=== PATIENT | male | born 1955 | race Caucasian/White ===

== ENCOUNTER 2019-01-01 10:13 | Outpatient (CLI) | payer OTHER ==
[2019-01-01] MEDS ORDERED: GADOBUTROL 10 MMOL/10 ML VIAL ONE (10:30)
== END 2019-01-01 23:59 | disposition home or self-care (01) ==
LOC: CFH 10:13
PROVIDERS: ATTEND Psychiatry & Neurology Neurology
DX: H50.9 Unspecified strabismus (principal); R51 Headache; H53.9 Unspecified visual disturbance; J34.89 Other specified disorders of nose and nasal sinuses
CPT/HCPCS: 70553; A9585

== ENCOUNTER 2019-10-05 12:11 | Inpatient (IN) | payer OTHER ==
[~2019-10-05] VITALS: Ht 182.9 cm; Wt 77.0 kg
--- NOTE | 2019-10-05 12:30 | NUR ---
pt is moderate suicide risk per assessment. gas charger aware.
[2019-10-05] MEDS ORDERED: SODIUM CHLORIDE 0.9% 1,000ML IVBOLUS ONE ×2 (13:30→17:30)
[2019-10-05] MEDS ORDERED: MAGNESIUM SULFATE/D5W 100 ML IV ONE (13:30)
[2019-10-05] MEDS ORDERED: DIPHENHYDRAMINE 25 MG CAPSULE PO ONE (13:30)
[2019-10-05] MEDS ORDERED: DEXAMETHASONE 4 MG/ML, 1ML IVPush ONE (13:30)
[2019-10-05] MEDS ORDERED: KETOROLAC 30 MG/1 ML IVPush ONE (13:30)
[2019-10-05] MEDS ORDERED: METOCLOPRAMIDE 5 MG/ML, 2ML IVPush ONE (13:30)
[2019-10-05 13:34] LABS: ANION GAP 12 mmol/L (5-15); CALCIUM 10.2 mg/dL (8.5-10.1); CHLORIDE 98 mmol/L (98-107); CREATININE 2.27 mg/dL (0.7-1.3)
--- NOTE | 2019-10-05 13:40 | NUR ---
CHILD CARE AIDE: INFORMED PT IS LEGAL HOLD NOW, PT MOVED TO SECURE ROOM.
--- NOTE | 2019-10-05 13:55 | NUR ---
BREAK RN: PT MOVED FROM ROOM 13 TO ROOM 2 DUE TO SAFETY CONCERNS. PT ROOM SECURED, GARAGE DOORS DOWN, BELONGINGS PLACED IN SAFE KEEPING. SITTER AT DOOR
[2019-10-05] MEDS ORDERED: DIPHENHYDRAMINE 25 MG CAPSULE ONE (14:05)
[2019-10-05] MEDS ORDERED: DEXAMETHASONE 4 MG/ML, 5ML ONE (14:05)
[2019-10-05] MEDS ORDERED: METOCLOPRAMIDE 5 MG/ML, 2ML ONE (14:05)
[2019-10-05] MEDS ORDERED: KETOROLAC 30 MG/1 ML ONE (14:05)
[2019-10-05 14:20] LABS: MEAN CORPUSCULAR HEMOGLOBIN 32.3 pg (27.5-34.5); MEAN CORPUSCULAR HGB CONC 34.4 g/dL (33.2-36.2); MEAN CORPUSCULAR VOLUME 93.7 fL (81-97); RED BLOOD COUNT 2.53 x10^6/uL (4.38-5.82); RED CELL DISTRIBUTION WIDTH 16.7 % (9.4-14.8)
[2019-10-05 14:24] LABS: MEAN PLATELET VOLUME 7.2 fL (7.4-10.4); PLATELET COUNT 64 x10^3/uL (130-400)
--- NOTE | 2019-10-05 14:25 | NUR ---
back from lunch, report from Eleuterio, RN break RN. patient came from room 18. patient to me is denying suicide ideation. He states he said he wanted to kill himself because of the headache pain. patient reports headache that began 38 days ago. he is a difficult historian because he is restless with pain. he is in bed, on monitor, vss, and rails up/medicated. patient denies suicide and states no prior suicide attempts. patient states pain got bad in last two hours in head and that he can't tolerate it. will monitor.
[2019-10-05 14:29] LABS: BASOPHILS # (AUTO) 0.05 x10^3/uL (0-0.1); BASOPHILS % (AUTO) 1 % (0-1); EOSINOPHILS # (AUTO) 0.04 x10^3/uL (0-0.4); EOSINOPHILS % (AUTO) 1 % (1-7); LYMPHOCYTES % (AUTO) 19 % (22-44); MD SCAN; MONOCYTES # (AUTO) 0.45 x10^3/uL (0.2-0.8); MONOCYTES % (AUTO) 7 % (2-9); NEUTROPHILS # (AUTO) 4.61 x10^3/uL (1.8-6.8); NEUTROPHILS % (AUTO) 73 % (42-75)
--- NOTE | 2019-10-05 15:10 | NUR ---
patient has calmed some. in bed rails up on monitor
--- NOTE | 2019-10-05 16:04 | NUR ---
clean catch urine obtained and sent to lab. patient to be admitted, awaiting orders
[2019-10-05 16:12] LABS: AMPHETAMINE SCREEN, URINE Negative (Negative); BARBITURATE SCREEN, URINE Negative (Negative); BENZODIAZEPINE SCREEN, URINE Negative (Negative); CANNABINOID SCREEN, URINE Negative (Negative); COCAINE SCREEN, URINE Negative (Negative); METHADONE SCREEN, URINE Negative (Negative); OPIATE SCREEN, URINE Positive (Negative)
[2019-10-05 16:13] LABS: SALICYLATE LEVEL < 1.7 mg/dL (2.8-20.0)
[2019-10-05] MEDS ORDERED: LEVO50TA PO (16:37)
[2019-10-05] MEDS ORDERED: TRAM1TAB6 PO (16:37)
--- NOTE | 2019-10-05 16:37 | NUR ---
trying to update med list, patient is unsure of meds. says he takes cepta for depression but unknown med. updated meds that he knows.
[2019-10-05] MEDS ORDERED: DOCUSATE 100 MG CAPSULE PO PRN (17:30)
[2019-10-05] MEDS ORDERED: HYDROmorphone 2 MG/ML, 1ML IVPush PRN (17:30)
[2019-10-05] MEDS: LACTATED RINGERS 1,000 ML IV SCH (18:33)
[2019-10-05 18:43] LABS: ALBUMIN 2.1 g/dL (3.4-5.0); BILIRUBIN, DIRECT 0.1 mg/dL (0.1-0.2)
[2019-10-05 19:00] VITALS: BP 172/89
[2019-10-05 19:08] LABS: BILIRUBIN,INDIRECT 0.3 mg/dL (0.0-2.0); BILIRUBIN,TOTAL 0.4 mg/dL (0.2-1.0); FREE T4 (FREE THYROXINE) 0.86 ng/dL (0.76-1.46); HCT (SEDRATE) 22.9 % (39.2-51.8); PREALBUMIN 34.2 mg/dL (20.0-40.0); TOTAL PROTEIN 12.9 g/dL (6.4-8.2)
[2019-10-05 19:14] LABS: D-DIMER (DIC) 0.22 ug/mlFEU (0.00-0.52); INTERNATIONAL NORMALIZED RATIO 1.23 (0.93-1.1); PROTHROMBIN TIME 13.1 Seconds (9.6-11.5); PROTIME 13.1 Seconds (9.6-11.5)
[2019-10-05] MEDS: VALPROATE SODIUM 500 MG in DEXTROSE 5% 100 ML IV SCH (19:35)
[2019-10-05 20:13] LABS: SEDIMENTATION RATE > 120 mm/hr (0-10)
[2019-10-05] MEDS: ACETAMINOPHEN 325 MG TABLET PO PRN (20:27)
[2019-10-05] MEDS: LABETALOL 5MG/ML, 20ML IVPush PRN (20:28)
[2019-10-05 21:40] VITALS: BP 154/78
[2019-10-05] MEDS: METOCLOPRAMIDE 5 MG/ML, 2ML IVPush PRN (22:37)
[2019-10-05] MEDS: DIPHENHYDRAMINE 50 MG/ML, 1ML IVPush PRN (22:38)
[2019-10-05 23:14] LABS: MICROSCOPIC INDICATED
[2019-10-05 23:23] LABS: CHLORIDE,URINE RANDOM 48 mmol/L; POTASSIUM,URINE RANDOM 78 mmol/L; SODIUM,URINE RANDOM 44 mmol/L
[2019-10-05 23:26] LABS: CULTURE INDICATED? NO
[2019-10-06 01:03] VITALS: BP 162/87
[2019-10-06] MEDS: VALPROATE SODIUM 500 MG in DEXTROSE 5% 100 ML IV SCH ×4 (01:34→20:53)
[2019-10-06] MEDS: ACETAMINOPHEN 325 MG TABLET PO PRN (01:43)
[2019-10-06] MEDS: LACTATED RINGERS 1,000 ML IV SCH ×3 (04:10→20:53)
[2019-10-06] MEDS: LEVOTHYROXINE 50 MCG TABLET PO SCH (05:39)
[2019-10-06] MEDS: DIPHENHYDRAMINE 50 MG/ML, 1ML IVPush PRN (05:52)
[2019-10-06] MEDS: METOCLOPRAMIDE 5 MG/ML, 2ML IVPush PRN (05:52)
[2019-10-06] MEDS ORDERED: CYANOCOBALAMIN 1,000 MCG/ML, 1ML IM ONE (06:30)
[2019-10-06 06:41] LABS: ANION GAP 11 mmol/L (5-15); CALCIUM 9.9 mg/dL (8.5-10.1); CHLORIDE 100 mmol/L (98-107)
[2019-10-06 06:53] LABS: ALANINE AMINOTRANSFERASE 18 U/L (12-78); ALKALINE PHOSPHATASE 28 U/L (45-117); BILIRUBIN,TOTAL 0.3 mg/dL (0.2-1.0); MEAN CORPUSCULAR HEMOGLOBIN 32.9 pg (27.5-34.5); MEAN CORPUSCULAR HGB CONC 34.7 g/dL (33.2-36.2); MEAN CORPUSCULAR VOLUME 94.9 fL (81-97); RED BLOOD COUNT 2.31 x10^6/uL (4.38-5.82); RED CELL DISTRIBUTION WIDTH 17.1 % (9.4-14.8); TOTAL PROTEIN 12.8 g/dL (6.4-8.2)
[2019-10-06 07:07] VITALS: BP 153/81
[2019-10-06] MEDS: CYANOCOBALAMIN 1,000 MCG TABLET PO SCH (08:38)
[2019-10-06] MEDS: PANTOPRAZOLE 40 MG IV IVPush SCH (08:39)
[2019-10-06] MEDS: ACETAMINOPHEN 325 MG TABLET PO SCH (08:39)
[2019-10-06 08:46] LABS: BASOPHILS # (AUTO) 0.03 x10^3/uL (0-0.1); BASOPHILS % (AUTO) 0 % (0-1); EOSINOPHILS # (AUTO) 0.01 x10^3/uL (0-0.4); EOSINOPHILS % (AUTO) 0 % (1-7); LYMPHOCYTES # (AUTO) 1.08 x10^3/uL (1-3.4); LYMPHOCYTES % (AUTO) 15 % (22-44); MD MORPH REVIEW ONLY; MEAN PLATELET VOLUME 7.4 fL (7.4-10.4); MONOCYTES # (AUTO) 0.65 x10^3/uL (0.2-0.8); MONOCYTES % (AUTO) 9 % (2-9); NEUTROPHILS # (AUTO) 5.56 x10^3/uL (1.8-6.8); NEUTROPHILS % (AUTO) 76 % (42-75); PLATELET COUNT 58 x10^3/uL (130-400)
[2019-10-06 08:48] LABS: <PLATELET ESTIMATE> DECREASED; <PLT MORPHOLOGY> NORMAL PLT MORPH; ROULEAUX 2+
[2019-10-06] MEDS: ONDANSETRON 2MG/ML, 2ML IVPush PRN (10:01)
[2019-10-06] MEDS ORDERED: GADOTERATE 7.5 MMOL/15 ML SYR ONE (14:12)
[2019-10-06] MEDS ORDERED: MIDAZOLAM 1 MG/ML, 5ML ONE (14:33)
[2019-10-06] MEDS ORDERED: FLUMAZENIL 0.1 MG/1 ML, 5ML ONE (14:33)
[2019-10-06] MEDS ORDERED: FENTANYL PF 100 MCG/2ML ONE ×2 (14:33)
[2019-10-06] MEDS ORDERED: NALOXONE 1 MG/ML, 2ML ONE (14:33)
[2019-10-06] MEDS ORDERED: LIDOCAINE 1%, 10ML ONE (14:33)
[2019-10-06 17:31] VITALS: BP 144/86
[2019-10-06 19:29] VITALS: BP 119/71
[2019-10-07] VITALS (10 sets, daily range): BP systolic 125–156; BP diastolic 69–91
[2019-10-07] MEDS: VALPROATE SODIUM 500 MG in DEXTROSE 5% 100 ML IV SCH ×4 (03:06→21:29)
[2019-10-07] MEDS: LACTATED RINGERS 1,000 ML IV SCH (03:08)
[2019-10-07] MEDS: LEVOTHYROXINE 50 MCG TABLET PO SCH (05:07)
[2019-10-07 05:51] LABS: ANION GAP 7 mmol/L (5-15); CALCIUM 9.3 mg/dL (8.5-10.1); CHLORIDE 103 mmol/L (98-107)
[2019-10-07 05:52] LABS: CREATININE 1.88 mg/dL (0.7-1.3)
[2019-10-07 06:20] LABS: MEAN CORPUSCULAR HEMOGLOBIN 32.2 pg (27.5-34.5); MEAN CORPUSCULAR HGB CONC 34.3 g/dL (33.2-36.2); RED BLOOD COUNT 1.98 x10^6/uL (4.38-5.82); RED CELL DISTRIBUTION WIDTH 16.8 % (9.4-14.8)
[2019-10-07 06:25] LABS: MEAN PLATELET VOLUME 7.3 fL (7.4-10.4); PLATELET COUNT 54 x10^3/uL (130-400)
[2019-10-07 06:27] LABS: BASOPHILS # (AUTO) 0.04 x10^3/uL (0-0.1); BASOPHILS % (AUTO) 1 % (0-1); EOSINOPHILS # (AUTO) 0.06 x10^3/uL (0-0.4); EOSINOPHILS % (AUTO) 1 % (1-7); LYMPHOCYTES # (AUTO) 1.37 x10^3/uL (1-3.4); LYMPHOCYTES % (AUTO) 21 % (22-44); MD MORPH REVIEW ONLY; MONOCYTES # (AUTO) 0.41 x10^3/uL (0.2-0.8); MONOCYTES % (AUTO) 6 % (2-9); NEUTROPHILS # (AUTO) 4.62 x10^3/uL (1.8-6.8); NEUTROPHILS % (AUTO) 71 % (42-75)
[2019-10-07 06:28] LABS: <PLATELET ESTIMATE> DECREASED; <PLT MORPHOLOGY> NORMAL PLT MORPH; ROULEAUX 2+
[2019-10-07] MEDS: D5%-0.45% NACL 1,000 ML IV SCH ×2 (08:17→21:30)
[2019-10-07] MEDS: ACETAMINOPHEN 325 MG TABLET PO SCH (08:17)
[2019-10-07] MEDS: PANTOPRAZOLE 40 MG IV IVPush SCH (08:17)
[2019-10-07] MEDS: CYANOCOBALAMIN 1,000 MCG TABLET PO SCH (08:19)
[2019-10-07] MEDS: DIPHENHYDRAMINE 50 MG/ML, 1ML IVPush PRN ×2 (10:23→21:39)
[2019-10-07] MEDS: METOCLOPRAMIDE 5 MG/ML, 2ML IVPush PRN (10:23)
[2019-10-07] MEDS ORDERED: LACTATED RINGERS 1,000 ML IV SCH (17:00)
[2019-10-08] MEDS: ONDANSETRON 2MG/ML, 2ML IVPush PRN (01:51)
[2019-10-08 02:15] VITALS: BP 149/89
[2019-10-08] MEDS: VALPROATE SODIUM 500 MG in DEXTROSE 5% 100 ML IV SCH ×4 (03:04→20:49)
[2019-10-08] MEDS: LEVOTHYROXINE 50 MCG TABLET PO SCH (05:43)
[2019-10-08] MEDS: ACETAMINOPHEN 325 MG TABLET PO PRN (05:50)
[2019-10-08 06:48] LABS: MEAN CORPUSCULAR HEMOGLOBIN 32.6 pg (27.5-34.5); MEAN CORPUSCULAR HGB CONC 34.6 g/dL (33.2-36.2); MEAN CORPUSCULAR VOLUME 94.4 fL (81-97); MEAN PLATELET VOLUME 7.5 fL (7.4-10.4); PLATELET COUNT 54 x10^3/uL (130-400); RED CELL DISTRIBUTION WIDTH 15.7 % (9.4-14.8)
[2019-10-08 06:53] LABS: ANION GAP 9 mmol/L (5-15); CALCIUM 9.3 mg/dL (8.5-10.1); CHLORIDE 102 mmol/L (98-107)
[2019-10-08 06:54] LABS: CREATININE 1.49 mg/dL (0.7-1.3)
[2019-10-08 07:25] LABS: MD YES
[2019-10-08 07:34] LABS: BAND#(MANUAL) 0.16 x10^3/uL; BANDS%(MANUAL) 3 % (0-7); LYMPH#(MANUAL) 1.35 x10^3/uL (1-3.4); LYMPHS% (MANUAL) 25 % (22-44); METAMYELOCYTES# (MANUAL) 0.05 x10^3/uL (0-0); METAMYELOCYTES% (MANUAL) 1 % (0-1); MONOS#(MANUAL) 0.22 x10^3/uL (0.3-2.7); MONOS% (MANUAL) 4 % (2-9); ROULEAUX 2+; SEG#(MANUAL) 3.62 x10^3/uL (1.8-6.8); SEGS% (MANUAL) 67 % (42-75)
[2019-10-08 07:35] LABS: <PLATELET ESTIMATE> DECREASED; <PLT MORPHOLOGY> NORMAL PLT MORPH
[2019-10-08 07:49] VITALS: BP 148/82
[2019-10-08] MEDS: CYANOCOBALAMIN 1,000 MCG TABLET PO SCH (08:18)
[2019-10-08] MEDS: PANTOPRAZOLE 40 MG IV IVPush SCH (08:18)
[2019-10-08] MEDS: ACETAMINOPHEN 325 MG TABLET PO SCH (08:20)
[2019-10-08] MEDS: METOCLOPRAMIDE 5 MG/ML, 2ML IVPush PRN ×2 (12:37→18:24)
[2019-10-08] MEDS: DIPHENHYDRAMINE 50 MG/ML, 1ML IVPush PRN ×2 (12:37→18:23)
[2019-10-08 12:45] VITALS: BP 148/84
[2019-10-08] MEDS: D5%-0.45% NACL 1,000 ML IV SCH (14:24)
[2019-10-08 19:34] VITALS: BP 136/82
[2019-10-09 00:50] VITALS: BP 154/87
[2019-10-09] MEDS: VALPROATE SODIUM 500 MG in DEXTROSE 5% 100 ML IV SCH ×2 (03:06→09:49)
[2019-10-09] MEDS: D5%-0.45% NACL 1,000 ML IV SCH ×2 (05:51→20:04)
[2019-10-09] MEDS: LEVOTHYROXINE 50 MCG TABLET PO SCH (05:51)
[2019-10-09 07:05] VITALS: BP 138/88
[2019-10-09] MEDS: PANTOPRAZOLE 40 MG IV IVPush SCH (09:48)
[2019-10-09] MEDS: CYANOCOBALAMIN 1,000 MCG TABLET PO SCH (09:50)
[2019-10-09] MEDS: ACETAMINOPHEN 325 MG TABLET PO SCH (09:50)
[2019-10-09] MEDS: DIPHENHYDRAMINE 50 MG/ML, 1ML IVPush PRN ×2 (10:38→17:40)
[2019-10-09] MEDS: METOCLOPRAMIDE 5 MG/ML, 2ML IVPush PRN ×2 (10:38→17:40)
[2019-10-09 13:59] VITALS: BP 126/84
[2019-10-09] MEDS: DIVALPROEX 500 MG TABLET.DR PO SCH ×2 (15:37→20:04)
[2019-10-09] MEDS ORDERED: DIVALPROEX 500 MG TABLET.DR PO SCH (16:00)
[2019-10-09 19:10] VITALS: BP 162/90
[2019-10-09] MEDS: TRAZODONE 50MG TABLET PO PRN (20:21)
[2019-10-10] MEDS: METOCLOPRAMIDE 5 MG/ML, 2ML IVPush PRN ×3 (01:56→17:30)
[2019-10-10] MEDS: DIPHENHYDRAMINE 50 MG/ML, 1ML IVPush PRN ×3 (01:56→17:30)
[2019-10-10 02:00] VITALS: BP 173/93
[2019-10-10] MEDS: DIVALPROEX 500 MG TABLET.DR PO SCH ×4 (06:26→21:09)
[2019-10-10] MEDS: LEVOTHYROXINE 50 MCG TABLET PO SCH (06:26)
[2019-10-10 07:55] VITALS: BP 156/80
[2019-10-10] MEDS: CYANOCOBALAMIN 1,000 MCG TABLET PO SCH (09:59)
[2019-10-10] MEDS: ACETAMINOPHEN 325 MG TABLET PO SCH (09:59)
[2019-10-10] MEDS: D5%-0.45% NACL 1,000 ML IV SCH (11:09)
[2019-10-10] MEDS: PANTOPRAZOLE 40MG TABLET PO SCH (11:09)
[2019-10-10] MEDS ORDERED: GUAIFENESIN 200 MG TABLET PO PRN (13:00)
[2019-10-10 14:39] VITALS: BP 157/85
[2019-10-10 20:07] VITALS: BP 156/90
[2019-10-11] VITALS (7 sets, daily range): BP systolic 157–187; BP diastolic 83–95
[2019-10-11] MEDS: D5%-0.45% NACL 1,000 ML IV SCH ×2 (00:49→14:42)
[2019-10-11] MEDS: METOCLOPRAMIDE 5 MG/ML, 2ML IVPush PRN ×2 (03:43→10:52)
[2019-10-11] MEDS: DIPHENHYDRAMINE 50 MG/ML, 1ML IVPush PRN ×3 (03:43→22:01)
[2019-10-11 04:56] LABS: ALBUMIN 1.8 g/dL (3.4-5.0); ANION GAP 10 mmol/L (5-15); CALCIUM 9.2 mg/dL (8.5-10.1); CHLORIDE 104 mmol/L (98-107); CREATININE 1.25 mg/dL (0.7-1.3)
[2019-10-11] MEDS: LEVOTHYROXINE 50 MCG TABLET PO SCH (05:46)
[2019-10-11] MEDS: DIVALPROEX 500 MG TABLET.DR PO SCH ×4 (05:46→20:49)
[2019-10-11 05:53] LABS: MEAN CORPUSCULAR HEMOGLOBIN 32.4 pg (27.5-34.5); MEAN CORPUSCULAR HGB CONC 34.3 g/dL (33.2-36.2); MEAN CORPUSCULAR VOLUME 94.7 fL (81-97); RED BLOOD COUNT 2.35 x10^6/uL (4.38-5.82); RED CELL DISTRIBUTION WIDTH 16.8 % (9.4-14.8)
[2019-10-11 05:55] LABS: BASOPHILS # (AUTO) 0.03 x10^3/uL (0-0.1); BASOPHILS % (AUTO) 1 % (0-1); EOSINOPHILS # (AUTO) 0.06 x10^3/uL (0-0.4); EOSINOPHILS % (AUTO) 1 % (1-7); LYMPHOCYTES # (AUTO) 0.98 x10^3/uL (1-3.4); LYMPHOCYTES % (AUTO) 23 % (22-44); MD MORPH REVIEW ONLY; MONOCYTES # (AUTO) 0.34 x10^3/uL (0.2-0.8); MONOCYTES % (AUTO) 8 % (2-9); NEUTROPHILS # (AUTO) 2.88 x10^3/uL (1.8-6.8); NEUTROPHILS % (AUTO) 67 % (42-75); ROULEAUX 2+
[2019-10-11 05:56] LABS: <PLATELET ESTIMATE> DECREASED; <PLT MORPHOLOGY> NORMAL PLT MORPH
[2019-10-11 05:59] LABS: MEAN PLATELET VOLUME 7.9 fL (7.4-10.4); PLATELET COUNT 42 x10^3/uL (130-400)
[2019-10-11] MEDS: CYANOCOBALAMIN 1,000 MCG TABLET PO SCH (08:00)
[2019-10-11] MEDS: PANTOPRAZOLE 40MG TABLET PO SCH (08:01)
[2019-10-11] MEDS: ACETAMINOPHEN 325 MG TABLET PO SCH (08:01)
[2019-10-11] MEDS: LABETALOL 5MG/ML, 20ML IVPush PRN ×2 (08:12→19:30)
[2019-10-11] MEDS ORDERED: POTASSIUM CHLORIDE 20 MEQ in SODIUM CHLORIDE 0.9% 250 ML IV ONE (12:00)
[2019-10-11] MEDS: HYDROmorphone 2 MG/ML, 1ML IVPush PRN ×2 (15:04→19:51)
[2019-10-11] MEDS: HEPARIN 5,000 UNITS/ML, 1ML SQ SCH (17:00)
[2019-10-12] VITALS (7 sets, daily range): BP systolic 159–179; BP diastolic 85–97
[2019-10-12] MEDS: HEPARIN 5,000 UNITS/ML, 1ML SQ SCH ×4 (01:00→19:00)
[2019-10-12] MEDS: HYDROmorphone 2 MG/ML, 1ML IVPush PRN ×5 (01:51→22:10)
[2019-10-12 05:30] LABS: ANION GAP 7 mmol/L (5-15); CALCIUM 9.9 mg/dL (8.5-10.1); CHLORIDE 103 mmol/L (98-107); CREATININE 1.29 mg/dL (0.7-1.3)
[2019-10-12] MEDS: DIVALPROEX 500 MG TABLET.DR PO SCH ×5 (05:33→20:39)
[2019-10-12] MEDS: LEVOTHYROXINE 50 MCG TABLET PO SCH (05:33)
[2019-10-12 06:48] LABS: MEAN CORPUSCULAR HEMOGLOBIN 32.4 pg (27.5-34.5); MEAN CORPUSCULAR HGB CONC 34.4 g/dL (33.2-36.2); MEAN CORPUSCULAR VOLUME 94.2 fL (81-97); RED BLOOD COUNT 2.39 x10^6/uL (4.38-5.82)
[2019-10-12 06:58] LABS: PLATELET COUNT 37 x10^3/uL (130-400)
[2019-10-12 07:06] LABS: BASOPHILS # (AUTO) 0.01 x10^3/uL (0-0.1); BASOPHILS % (AUTO) 0 % (0-1); EOSINOPHILS # (AUTO) 0.09 x10^3/uL (0-0.4); EOSINOPHILS % (AUTO) 2 % (1-7); LYMPHOCYTES # (AUTO) 0.86 x10^3/uL (1-3.4); LYMPHOCYTES % (AUTO) 20 % (22-44); MD MORPH REVIEW ONLY; MONOCYTES # (AUTO) 0.43 x10^3/uL (0.2-0.8); MONOCYTES % (AUTO) 10 % (2-9); NEUTROPHILS # (AUTO) 2.97 x10^3/uL (1.8-6.8); NEUTROPHILS % (AUTO) 68 % (42-75)
[2019-10-12 07:07] LABS: <PLATELET ESTIMATE> DECREASED; <PLT MORPHOLOGY> NORMAL PLT MORPH; ROULEAUX 2+
[2019-10-12 07:08] LABS: ANISOCYTOSIS 1+
[2019-10-12] MEDS: ACETAMINOPHEN 325 MG TABLET PO SCH (08:03)
[2019-10-12] MEDS: PANTOPRAZOLE 40MG TABLET PO SCH (08:03)
[2019-10-12] MEDS: CYANOCOBALAMIN 1,000 MCG TABLET PO SCH (08:03)
[2019-10-12] MEDS: DIPHENHYDRAMINE 50 MG/ML, 1ML IVPush PRN ×2 (08:04→16:30)
[2019-10-12] MEDS: TRAZODONE 50MG TABLET PO PRN (20:39)
[2019-10-13 00:56] VITALS: BP 164/97
[2019-10-13] MEDS: DIPHENHYDRAMINE 50 MG/ML, 1ML IVPush PRN ×2 (01:07→11:35)
[2019-10-13] MEDS: HYDROmorphone 2 MG/ML, 1ML IVPush PRN ×3 (04:35→21:50)
[2019-10-13 06:04] LABS: ANION GAP 10 mmol/L (5-15); CALCIUM 9.9 mg/dL (8.5-10.1); CHLORIDE 100 mmol/L (98-107)
[2019-10-13 06:10] LABS: MEAN CORPUSCULAR HEMOGLOBIN 32.5 pg (27.5-34.5); MEAN CORPUSCULAR HGB CONC 34.5 g/dL (33.2-36.2); MEAN CORPUSCULAR VOLUME 94.2 fL (81-97); RED CELL DISTRIBUTION WIDTH 17.1 % (9.4-14.8)
[2019-10-13] MEDS: DIVALPROEX 500 MG TABLET.DR PO SCH ×4 (06:11→21:24)
[2019-10-13] MEDS: LEVOTHYROXINE 50 MCG TABLET PO SCH (06:11)
[2019-10-13 06:12] LABS: MEAN PLATELET VOLUME 7.9 fL (7.4-10.4); PLATELET COUNT 32 x10^3/uL (130-400)
[2019-10-13 06:18] LABS: BASOPHILS # (AUTO) 0.02 x10^3/uL (0-0.1); BASOPHILS % (AUTO) 0 % (0-1); EOSINOPHILS # (AUTO) 0.08 x10^3/uL (0-0.4); EOSINOPHILS % (AUTO) 2 % (1-7); LYMPHOCYTES # (AUTO) 0.98 x10^3/uL (1-3.4); LYMPHOCYTES % (AUTO) 24 % (22-44); MD SCAN; MONOCYTES # (AUTO) 0.47 x10^3/uL (0.2-0.8); MONOCYTES % (AUTO) 12 % (2-9); NEUTROPHILS # (AUTO) 2.47 x10^3/uL (1.8-6.8); NEUTROPHILS % (AUTO) 62 % (42-75)
[2019-10-13 07:50] VITALS: BP 160/96
[2019-10-13] MEDS: ACETAMINOPHEN 325 MG TABLET PO SCH (08:12)
[2019-10-13] MEDS: CYANOCOBALAMIN 1,000 MCG TABLET PO SCH (08:13)
[2019-10-13] MEDS: PANTOPRAZOLE 40MG TABLET PO SCH (08:13)
[2019-10-13] MEDS: HEPARIN 5,000 UNITS/ML, 1ML SQ SCH ×4 (08:17→22:55)
[2019-10-13] MEDS ORDERED: PHARMACY MAY ADJ FOR RENAL FX MC PRN (10:00)
[2019-10-13] MEDS: SODIUM CHLORIDE 0.9% 1,000 ML IV SCH ×2 (10:43→21:25)
[2019-10-13 12:43] VITALS: BP 167/96
[2019-10-13 19:22] VITALS: BP 158/97
[2019-10-14 00:32] VITALS: BP 147/85
[2019-10-14] MEDS: HYDROmorphone 2 MG/ML, 1ML IVPush PRN (03:29)
[2019-10-14] MEDS: LEVOTHYROXINE 50 MCG TABLET PO SCH (06:25)
[2019-10-14] MEDS: DIVALPROEX 500 MG TABLET.DR PO SCH ×4 (06:26→21:01)
[2019-10-14 07:02] LABS: MEAN CORPUSCULAR HEMOGLOBIN 32.4 pg (27.5-34.5); MEAN CORPUSCULAR HGB CONC 34.3 g/dL (33.2-36.2); MEAN CORPUSCULAR VOLUME 94.4 fL (81-97); RED BLOOD COUNT 2.46 x10^6/uL (4.38-5.82); RED CELL DISTRIBUTION WIDTH 17.1 % (9.4-14.8)
[2019-10-14 07:15] LABS: ANION GAP 10 mmol/L (5-15); CALCIUM 9.3 mg/dL (8.5-10.1); CHLORIDE 101 mmol/L (98-107); CREATININE 1.27 mg/dL (0.7-1.3)
[2019-10-14 07:21] LABS: MEAN PLATELET VOLUME 7.4 fL (7.4-10.4)
[2019-10-14 07:23] LABS: PLATELET COUNT 26 x10^3/uL (130-400)
[2019-10-14 07:24] LABS: BASOPHILS # (AUTO) 0.06 x10^3/uL (0-0.1); BASOPHILS % (AUTO) 1 % (0-1); EOSINOPHILS # (AUTO) 0.08 x10^3/uL (0-0.4); EOSINOPHILS % (AUTO) 2 % (1-7); LYMPHOCYTES # (AUTO) 1.16 x10^3/uL (1-3.4); LYMPHOCYTES % (AUTO) 28 % (22-44); MD MORPH REVIEW ONLY; MONOCYTES % (AUTO) 12 % (2-9); NEUTROPHILS # (AUTO) 2.42 x10^3/uL (1.8-6.8); NEUTROPHILS % (AUTO) 57 % (42-75)
[2019-10-14 07:25] LABS: <PLATELET ESTIMATE> DECREASED; <PLT MORPHOLOGY> NORMAL PLT MORPH; ANISOCYTOSIS 1+; ROULEAUX 2+
[2019-10-14 07:35] VITALS: BP 149/82
[2019-10-14] MEDS: PANTOPRAZOLE 40MG TABLET PO SCH (08:50)
[2019-10-14] MEDS: CYANOCOBALAMIN 1,000 MCG TABLET PO SCH (08:51)
[2019-10-14] MEDS: HEPARIN 5,000 UNITS/ML, 1ML SQ SCH ×3 (08:51→23:21)
[2019-10-14] MEDS: ACETAMINOPHEN 325 MG TABLET PO SCH (08:51)
[2019-10-14] MEDS: SODIUM CHLORIDE 0.9% 1,000 ML IV SCH ×2 (08:52→17:36)
[2019-10-14 09:03] LABS: INTERNATIONAL NORMALIZED RATIO 1.1 (0.93-1.1); PROTHROMBIN TIME 11.7 Seconds (9.6-11.5)
[2019-10-14 13:27] VITALS: BP 152/79
[2019-10-14] MEDS ORDERED: POTASSIUM CHLORIDE 20 MEQ TAB.ER.PRT PO ONE (13:30)
[2019-10-14] MEDS ORDERED: BORTEZOMIB SC ONE (16:00)
[2019-10-14] MEDS ORDERED: ONDANSETRON 8 MG TABLET PO SCH (16:00)
[2019-10-14] MEDS ORDERED: CYCLOPHOSPHAMIDE 50 MG CAP PO SCH (16:00)
[2019-10-14] MEDS ORDERED: DEXAMETHASONE 4 MG TABLET PO SCH (16:00)
[2019-10-14] MEDS ORDERED: CYCLOPHOSPHAMIDE 25 MG CAPSULE PO SCH (17:00)
[2019-10-14] MEDS: ACETAMINOPHEN 325 MG TABLET PO PRN ×2 (18:30→23:01)
[2019-10-14 18:43] VITALS: BP 165/85
[2019-10-14] MEDS: ONDANSETRON 2MG/ML, 2ML IVPush PRN (20:01)
[2019-10-14] MEDS ORDERED: ZOLPIDEM 10MG TABLET PO PRN (21:00)
[2019-10-14] MEDS: DIPHENHYDRAMINE 50 MG/ML, 1ML IVPush PRN (23:06)
[2019-10-15 00:33] VITALS: BP 171/89
[2019-10-15] MEDS: HYDROmorphone 2 MG/ML, 1ML IVPush PRN ×2 (00:38→09:29)
[2019-10-15] MEDS: SODIUM CHLORIDE 0.9% 1,000 ML IV SCH (03:15)
[2019-10-15] MEDS: DIVALPROEX 500 MG TABLET.DR PO SCH ×4 (05:27→21:04)
[2019-10-15] MEDS: LEVOTHYROXINE 50 MCG TABLET PO SCH (05:28)
[2019-10-15] MEDS: ACETAMINOPHEN 325 MG TABLET PO PRN ×3 (05:28→23:34)
[2019-10-15 06:28] VITALS: BP 151/86
[2019-10-15 06:56] LABS: ALBUMIN 1.9 g/dL (3.4-5.0); ANION GAP 8 mmol/L (5-15); CHLORIDE 104 mmol/L (98-107)
[2019-10-15 06:57] LABS: MEAN CORPUSCULAR HEMOGLOBIN 31.7 pg (27.5-34.5); MEAN CORPUSCULAR HGB CONC 33.6 g/dL (33.2-36.2); MEAN CORPUSCULAR VOLUME 94.4 fL (81-97); RED BLOOD COUNT 2.23 x10^6/uL (4.38-5.82)
[2019-10-15 06:58] LABS: ALANINE AMINOTRANSFERASE 29 U/L (12-78); ALKALINE PHOSPHATASE 37 U/L (45-117); BILIRUBIN,TOTAL 0.3 mg/dL (0.2-1.0); TOTAL PROTEIN 11.7 g/dL (6.4-8.2)
[2019-10-15 07:24] LABS: MEAN PLATELET VOLUME 7.9 fL (7.4-10.4)
[2019-10-15 07:25] LABS: PLATELET COUNT 28 x10^3/uL (130-400)
[2019-10-15] MEDS: ACETAMINOPHEN 325 MG TABLET PO SCH (07:30)
[2019-10-15] MEDS: HEPARIN 5,000 UNITS/ML, 1ML SQ SCH ×2 (07:31→15:52)
[2019-10-15] MEDS: PANTOPRAZOLE 40MG TABLET PO SCH (07:31)
[2019-10-15] MEDS: CYANOCOBALAMIN 1,000 MCG TABLET PO SCH (07:31)
[2019-10-15 07:36] LABS: BASOPHILS # (AUTO) 0.01 x10^3/uL (0-0.1); BASOPHILS % (AUTO) 0 % (0-1); EOSINOPHILS # (AUTO) 0.02 x10^3/uL (0-0.4); EOSINOPHILS % (AUTO) 1 % (1-7); LYMPHOCYTES % (AUTO) 15 % (22-44); MD SCAN; MONOCYTES # (AUTO) 0.23 x10^3/uL (0.2-0.8); MONOCYTES % (AUTO) 6 % (2-9); NEUTROPHILS # (AUTO) 3.06 x10^3/uL (1.8-6.8); NEUTROPHILS % (AUTO) 78 % (42-75)
[2019-10-15] MEDS ORDERED: hydrALAzine 20 MG/ML, 1ML IV PRN (12:00)
[2019-10-15] MEDS: ONDANSETRON 2MG/ML, 2ML IVPush PRN (12:01)
[2019-10-15 12:56] VITALS: BP 152/95
[2019-10-15 18:41] VITALS: BP 156/85
[2019-10-15] MEDS: TRAZODONE 50MG TABLET PO PRN ×2 (21:04→23:34)
[2019-10-16] VITALS (10 sets, daily range): BP systolic 118–157; BP diastolic 65–93
[2019-10-16] MEDS: HEPARIN 5,000 UNITS/ML, 1ML SQ SCH ×3 (00:03→16:19)
[2019-10-16] MEDS: HYDROmorphone 2 MG/ML, 1ML IVPush PRN ×2 (03:05→10:17)
[2019-10-16 04:20] LABS: ALANINE AMINOTRANSFERASE 23 U/L (12-78); ALBUMIN 1.8 g/dL (3.4-5.0); ANION GAP 7 mmol/L (5-15); CALCIUM 8.9 mg/dL (8.5-10.1); CHLORIDE 104 mmol/L (98-107)
[2019-10-16 04:23] LABS: ALKALINE PHOSPHATASE 39 U/L (45-117); BILIRUBIN,TOTAL 0.1 mg/dL (0.2-1.0); CREATININE 1.19 mg/dL (0.7-1.3); TOTAL PROTEIN 10.8 g/dL (6.4-8.2)
[2019-10-16 04:24] LABS: MEAN CORPUSCULAR HEMOGLOBIN 32.5 pg (27.5-34.5); MEAN CORPUSCULAR HGB CONC 34.2 g/dL (33.2-36.2); RED BLOOD COUNT 1.96 x10^6/uL (4.38-5.82); RED CELL DISTRIBUTION WIDTH 17.7 % (9.4-14.8)
[2019-10-16 04:28] LABS: MEAN PLATELET VOLUME 8.3 fL (7.4-10.4)
[2019-10-16 04:45] LABS: PLATELET COUNT 27 x10^3/uL (130-400)
[2019-10-16 04:56] LABS: BASOPHILS # (AUTO) 0.03 x10^3/uL (0-0.1); BASOPHILS % (AUTO) 1 % (0-1); EOSINOPHILS # (AUTO) 0.01 x10^3/uL (0-0.4); EOSINOPHILS % (AUTO) 0 % (1-7); LYMPHOCYTES # (AUTO) 0.66 x10^3/uL (1-3.4); LYMPHOCYTES % (AUTO) 21 % (22-44); MD SCAN; MONOCYTES # (AUTO) 0.35 x10^3/uL (0.2-0.8); MONOCYTES % (AUTO) 11 % (2-9); NEUTROPHILS # (AUTO) 2.08 x10^3/uL (1.8-6.8); NEUTROPHILS % (AUTO) 66 % (42-75)
[2019-10-16] MEDS: DIVALPROEX 500 MG TABLET.DR PO SCH ×4 (05:59→21:09)
[2019-10-16] MEDS: LEVOTHYROXINE 50 MCG TABLET PO SCH (06:01)
[2019-10-16] MEDS: ACETAMINOPHEN 325 MG TABLET PO SCH (07:49)
[2019-10-16] MEDS: CYANOCOBALAMIN 1,000 MCG TABLET PO SCH (07:49)
[2019-10-16] MEDS: PANTOPRAZOLE 40MG TABLET PO SCH (07:49)
[2019-10-16] MEDS ORDERED: DIPHENHYDRAMINE 25 MG CAPSULE PO ONE (08:30)
[2019-10-16] MEDS ORDERED: ACETAMINOPHEN 325 MG TABLET PO ONE (08:30)
[2019-10-16] MEDS ORDERED: SODIUM CHLORIDE 0.9% 1,000 ML IV SCH (10:00)
[2019-10-16] MEDS: ACETAMINOPHEN 325 MG TABLET PO PRN (20:20)
[2019-10-16] MEDS: TRAZODONE 50MG TABLET PO PRN (21:07)
[2019-10-17] MEDS: HEPARIN 5,000 UNITS/ML, 1ML SQ SCH ×2 (01:01→09:00)
[2019-10-17 02:50] VITALS: BP 149/81
[2019-10-17] MEDS: ACETAMINOPHEN 325 MG TABLET PO PRN ×2 (02:50→09:44)
[2019-10-17 05:00] LABS: ALBUMIN 1.7 g/dL (3.4-5.0); ANION GAP 8 mmol/L (5-15); CALCIUM 8.9 mg/dL (8.5-10.1); CHLORIDE 104 mmol/L (98-107)
[2019-10-17 05:04] LABS: ALANINE AMINOTRANSFERASE 24 U/L (12-78); ALKALINE PHOSPHATASE 39 U/L (45-117); BILIRUBIN,TOTAL 0.3 mg/dL (0.2-1.0); CREATININE 1.15 mg/dL (0.7-1.3); TOTAL PROTEIN 10.6 g/dL (6.4-8.2)
[2019-10-17 05:57] LABS: MEAN CORPUSCULAR HGB CONC 34.7 g/dL (33.2-36.2); MEAN CORPUSCULAR VOLUME 92.4 fL (81-97); MEAN PLATELET VOLUME 7.9 fL (7.4-10.4); RED BLOOD COUNT 2.22 x10^6/uL (4.38-5.82); RED CELL DISTRIBUTION WIDTH 16.9 % (9.4-14.8)
[2019-10-17 05:59] LABS: PLATELET COUNT 29 x10^3/uL (130-400)
[2019-10-17] MEDS: DIVALPROEX 500 MG TABLET.DR PO SCH ×2 (05:59→10:11)
[2019-10-17] MEDS: LEVOTHYROXINE 50 MCG TABLET PO SCH (05:59)
[2019-10-17 06:00] LABS: BASOPHILS # (AUTO) 0.03 x10^3/uL (0-0.1); BASOPHILS % (AUTO) 1 % (0-1); EOSINOPHILS # (AUTO) 0.03 x10^3/uL (0-0.4); EOSINOPHILS % (AUTO) 1 % (1-7); LYMPHOCYTES # (AUTO) 0.73 x10^3/uL (1-3.4); LYMPHOCYTES % (AUTO) 23 % (22-44); MD SCAN; MONOCYTES # (AUTO) 0.49 x10^3/uL (0.2-0.8); MONOCYTES % (AUTO) 15 % (2-9); NEUTROPHILS # (AUTO) 1.91 x10^3/uL (1.8-6.8); NEUTROPHILS % (AUTO) 60 % (42-75)
[2019-10-17] MEDS: HYDROmorphone 2 MG/ML, 1ML IVPush PRN (06:05)
[2019-10-17] MEDS: PANTOPRAZOLE 40MG TABLET PO SCH (06:05)
[2019-10-17 07:40] VITALS: BP 143/95
[2019-10-17] MEDS: ACETAMINOPHEN 325 MG TABLET PO SCH ×2 (09:00→14:13)
[2019-10-17] MEDS ORDERED: ACYCLOVIR 400 MG TABLET PO SCH (09:09)
[2019-10-17] MEDS ORDERED: DIPHENHYDRAMINE 12.5MG/5ML ORAL SOL PO ONE (09:30)
[2019-10-17] MEDS ORDERED: ACETAMINOPHEN 325 MG TABLET PO ONE (09:30)
[2019-10-17] MEDS: DIPHENHYDRAMINE 50 MG/ML, 1ML IVPush PRN (09:44)
[2019-10-17 09:53] VITALS: BP 149/82
[2019-10-17] MEDS: CYANOCOBALAMIN 1,000 MCG TABLET PO SCH (10:10)
[2019-10-17 10:14] VITALS: BP 146/81
[2019-10-17 13:26] VITALS: BP 163/87
[2019-10-17 15:05] VITALS: BP 135/79
== END 2019-10-17 16:40 | disposition home or self-care (01) | DRG 102 ==
LOC: ED 14:40 → EDIP 15:44 → 3N 18:27 → 3WST 10-13 16:56
PROVIDERS: ADMIT Internal Medicine; ATTEND Family Medicine
PROC: 30233N1 Transfusion of Nonautologous Red Blood Cells into Peripheral Vein, Percutaneous Approach (ICD-10-PCS; principal; 2019-10-07)
DX: G43.911 Migraine, unspecified, intractable, with status migrainosus (principal); E43 Unspecified severe protein-calorie malnutrition; R45.851 Suicidal ideations; F33.1 Major depressive disorder, recurrent, moderate; C90.00 Multiple myeloma not having achieved remission; E87.1 Hypo-osmolality and hyponatremia; E03.9 Hypothyroidism, unspecified; E83.52 Hypercalcemia; T45.1X5A Adverse effect of antineoplastic and immunosuppressive drugs, initial encounter; E86.0 Dehydration; Z88.8 Allergy status to other drugs, medicaments and biological substances
CPT/HCPCS: 36415; 84155; 84156; 87806; 96365; 96366; 96375; 99285; J3490; 38222; 70553; 71045; 76700; 77012; 80048; 80053; 80069; 80074; 80076; 80307; 81001; 82232; 82330; 82436; 82533; 82570; 82607; 82728; 82784; 83540; 83550; 83615; 83735; 84100; 84133; 84134; 84165; 84300; 84439; 84443; 84481; 85025; 85049; 85060; 85097; 85379; 85384; 85610; 85651; 85730; 86334; 86850; 86870; 86900; 86922; 86923; 88237; 88264; 88280; 88305; 88307; 88311; 88313; 88341; 88342; 88360; 93005; 99156; 99157; G0378; J1100; J1170; J1644; J1885; J2250; J2405; J3010; J3480; Q0162; A9575; C9113; G0475; J1200; J2310; J2765; J3420; J7030; J7050; J7120; J8530; J9041; P9016; P9040; Q0163

== ENCOUNTER 2019-11-06 08:10 | Emergency (ER) | payer OTHER ==
[~2019-11-06] VITALS: Ht 182.9 cm; Wt 73.0 kg
[~2019-11-06 08:10] MED LIST: LEVO50TA PO; TRAM1TAB6 PO
[2019-11-06] MEDS ORDERED: SODIUM CHLORIDE FLUSH 10ML SYR IVF ONE (08:30)
[2019-11-06 09:12] LABS: MEAN CORPUSCULAR HEMOGLOBIN 31.9 pg (27.5-34.5); MEAN CORPUSCULAR HGB CONC 34.3 g/dL (33.2-36.2); MEAN CORPUSCULAR VOLUME 93.1 fL (81-97); RED BLOOD COUNT 2.63 x10^6/uL (4.38-5.82); RED CELL DISTRIBUTION WIDTH 18.8 % (9.4-14.8)
[2019-11-06 09:14] LABS: ALANINE AMINOTRANSFERASE 33 U/L (12-78); ALBUMIN 2.3 g/dL (3.4-5.0); ANION GAP 12 mmol/L (5-15); CALCIUM 9.6 mg/dL (8.5-10.1); CHLORIDE 105 mmol/L (98-107); CREATININE 1.39 mg/dL (0.7-1.3)
[2019-11-06 09:25] LABS: ALKALINE PHOSPHATASE 59 U/L (45-117); BILIRUBIN,TOTAL 0.5 mg/dL (0.2-1.0); TOTAL PROTEIN 12.6 g/dL (6.4-8.2)
[2019-11-06 09:37] LABS: PLATELET COUNT 86 x10^3/uL (130-400)
[2019-11-06 09:38] LABS: MD YES
[2019-11-06] MEDS ORDERED: PROMETHAZINE 25 MG/ML, 1ML ONE (09:40)
[2019-11-06 09:42] LABS: BAND#(MANUAL) 0.12 x10^3/uL; BANDS%(MANUAL) 3 % (0-7); EOS#(MANUAL) 0.12 x10^3/uL (0.0-0.4); EOS% (MANUAL) 3 % (1-7); LYMPH#(MANUAL) 0.16 x10^3/uL (1-3.4); LYMPHS% (MANUAL) 4 % (22-44); MONOS#(MANUAL) 0.21 x10^3/uL (0.3-2.7); MONOS% (MANUAL) 5 % (2-9); NRBC % (MANUAL) 1 % (0-1); SEG#(MANUAL) 3.49 x10^3/uL (1.8-6.8); SEGS% (MANUAL) 85 % (42-75)
--- NOTE | 2019-11-06 09:45 | NUR ---
CONSENT FOR BLOOD TRANSFUSION OBTAINED. PT C/O MIGRAINE LOREDO AND MEDICATED NOTED ON MAR FOR SAME.
[2019-11-06 09:46] LABS: ROULEAUX 2+
[2019-11-06 09:48] LABS: ANISOCYTOSIS 1+
[2019-11-06 09:49] LABS: <PLATELET ESTIMATE> DECREASED; <PLT MORPHOLOGY> NORMAL PLT MORPH
[2019-11-06] MEDS ORDERED: PROMETHAZINE 25 MG/ML, 1ML IM ONE (10:00)
--- NOTE | 2019-11-06 10:29 | NUR ---
RESTING WITH EYES CLOSED
[2019-11-06] MEDS ORDERED: LORazepam 2 MG/ML, 1ML ONE ×2 (11:20→12:31)
--- NOTE | 2019-11-06 11:20 | NUR ---
PT STATES HE CONTINUES TO HAVE MIGRAINE. STATES HE DOES NOT TAKE MEDS FOR HTN BUT THAT IT HAS BEEN HIGHER THAN NORMAL THE LAST FEW MONTHS. ADDITIONALLY STATES LOREDO MAKES HIS BP HIGHER. MD AWARE OF CURRENT BP WITH FURTHER ORDERS FOR ATIVAN RECEIVED.
[2019-11-06] MEDS ORDERED: LORazepam 2 MG/ML, 1ML IVPush ONE (11:30)
[2019-11-06 11:44] VITALS: BP 206/116
--- NOTE | 2019-11-06 11:44 | NUR ---
FIRST UNIT OF BLOOD INFUSING. STATES HE STILL HAS LOREDO. WILL CONTINUE TO MONITOR
[2019-11-06 12:00] VITALS: BP 171/104
[2019-11-06 13:43] VITALS: BP 177/104
[2019-11-06 13:59] VITALS: BP 179/102
--- NOTE | 2019-11-06 14:07 | NUR ---
PROVIDED LUNCH TRAY WHICH PT ATE SOME OF. SLEEPY AND RESTING WITH EYES CLOSED SECOND UNIT OF BLOOD INFUSING.
[2019-11-06 14:14] VITALS: BP 175/108
[2019-11-06 15:56] VITALS: BP 166/110
--- NOTE | 2019-11-06 15:57 | NUR ---
TRANSFUSION COMPLETED. PT AMBULATED TO BATHROOM STEADY GAIT WITHOUT ASSISTANCE
== END 2019-11-06 16:12 | disposition home or self-care (01) ==
LOC: ED 09:05
DX: G43.909 Migraine, unspecified, not intractable, without status migrainosus (principal); D53.9 Nutritional anemia, unspecified; C90.00 Multiple myeloma not having achieved remission; E03.9 Hypothyroidism, unspecified
CPT/HCPCS: 36415; 36430; 80053; 85025; 86850; 86870; 86900; 86922; 96372; 96374; 99285; J2060; J2550; P9040; 86923

== ENCOUNTER 2019-11-12 08:13 | Emergency (ER) | payer OTHER ==
[~2019-11-12] VITALS: Ht 182.9 cm; Wt 72.8 kg
--- NOTE | 2019-11-12 08:50 | NUR ---
TRIPE FINISHER: PT AMBULATORY TO ROOM WITH STEADY GAIT WITH PROCESSING ARCHIVISTWILLY OMER AT THIS TIME
--- NOTE | 2019-11-12 10:39 | NUR ---
pt resting. no needs a this time
[2019-11-12 10:40] LABS: MEAN CORPUSCULAR HEMOGLOBIN 31.5 pg (27.5-34.5); MEAN CORPUSCULAR HGB CONC 34.8 g/dL (33.2-36.2); MEAN CORPUSCULAR VOLUME 90.7 fL (81-97); PLATELET COUNT 78 x10^3/uL (130-400); RED BLOOD COUNT 3.18 x10^6/uL (4.38-5.82); RED CELL DISTRIBUTION WIDTH 19.5 % (9.4-14.8)
[2019-11-12 10:43] LABS: INTERNATIONAL NORMALIZED RATIO 1.18 (0.93-1.1); PROTHROMBIN TIME 12.5 Seconds (9.6-11.5)
[2019-11-12 10:47] LABS: ALBUMIN 2.4 g/dL (3.4-5.0); ANION GAP 12 mmol/L (5-15); CALCIUM 9.2 mg/dL (8.5-10.1); CHLORIDE 102 mmol/L (98-107)
[2019-11-12 10:59] LABS: MD YES
[2019-11-12 11:01] LABS: BAND#(MANUAL) 0.26 x10^3/uL; BANDS%(MANUAL) 6 % (0-7); EOS#(MANUAL) 0.48 x10^3/uL (0.0-0.4); EOS% (MANUAL) 11 % (1-7); LYMPH#(MANUAL) 0.26 x10^3/uL (1-3.4); LYMPHS% (MANUAL) 6 % (22-44); METAMYELOCYTES# (MANUAL) 0.04 x10^3/uL (0-0); METAMYELOCYTES% (MANUAL) 1 % (0-1); MONOS#(MANUAL) 0.18 x10^3/uL (0.3-2.7); MONOS% (MANUAL) 4 % (2-9); SEG#(MANUAL) 3.17 x10^3/uL (1.8-6.8); SEGS% (MANUAL) 72 % (42-75)
[2019-11-12 11:02] LABS: <PLATELET ESTIMATE> DECREASED; <PLT MORPHOLOGY> NORMAL PLT MORPH; ALANINE AMINOTRANSFERASE 36 U/L (12-78); ALKALINE PHOSPHATASE 62 U/L (45-117); ANISOCYTOSIS 1+; BILIRUBIN,TOTAL 0.8 mg/dL (0.2-1.0); CREATININE 1.21 mg/dL (0.7-1.3); ROULEAUX 2+; TOTAL PROTEIN 11.9 g/dL (6.4-8.2)
[2019-11-12 11:34] VITALS: BP 163/103
--- NOTE | 2019-11-12 12:44 | NUR ---
TASK RN: PT DC HOME IN A STABLE CONDITION. DC INSTRUCTIONS WERE DISCUSSED WITH PT. PT VERBALIZED UNDERSTANDING. NO FURTHER QUESTIONS OR CONCERNS EXPRESSED AT THAT TIME. PT AMBULATED WITH RN TO DC DESK WITH A STEADY GAIT.
== END 2019-11-12 12:46 | disposition home or self-care (01) ==
LOC: ED 09:37
DX: L27.0 Generalized skin eruption due to drugs and medicaments taken internally (principal); T50.995A Adverse effect of other drugs, medicaments and biological substances, initial encounter; E03.9 Hypothyroidism, unspecified; I10 Essential (primary) hypertension; Y92.89 Other specified places as the place of occurrence of the external cause
CPT/HCPCS: 36415; 80053; 85025; 85610; 85730; 99283; 99284

== ENCOUNTER 2019-11-27 00:40 | Emergency (ER) | payer OTHER ==
[~2019-11-27] VITALS: Ht 182.9 cm; Wt 71.4 kg
--- NOTE | 2019-11-27 02:12 | NUR ---
pt resting on gurney, moniotrs applied, siderails up x2, call light within reach. pa at pt's bedside for eval
[2019-11-27] MEDS ORDERED: KETOROLAC 30 MG/1 ML ONE (02:19)
[2019-11-27] MEDS ORDERED: DIPHENHYDRAMINE 50 MG/ML, 1ML ONE (02:19)
[2019-11-27] MEDS ORDERED: METOCLOPRAMIDE 5 MG/ML, 2ML ONE (02:19)
[2019-11-27 02:30] VITALS: BP 146/95
[2019-11-27] MEDS ORDERED: DIPHENHYDRAMINE 50 MG/ML, 1ML IVPush ONE (02:30)
[2019-11-27] MEDS ORDERED: METOCLOPRAMIDE 5 MG/ML, 2ML IVPush ONE (02:30)
[2019-11-27] MEDS ORDERED: KETOROLAC 30 MG/1 ML IVPush ONE (02:30)
--- NOTE | 2019-11-27 02:36 | NUR ---
pt medicated per mar
== END 2019-11-27 03:37 | disposition home or self-care (01) ==
LOC: ED 03:08
DX: G43.909 Migraine, unspecified, not intractable, without status migrainosus (principal); H53.149 Visual discomfort, unspecified; I10 Essential (primary) hypertension
CPT/HCPCS: 96374; 96375; 99284; J1200; J1885; J2765

== ENCOUNTER 2019-12-02 15:30 | Emergency (ER) | payer OTHER ==
[~2019-12-02] VITALS: Ht 182.9 cm; Wt 74.6 kg
[2019-12-02] MEDS ORDERED: ACYC-114 PO (15:44)
[2019-12-02] MEDS ORDERED: TRAM50TA2 PO (15:44)
--- NOTE | 2019-12-02 15:46 | NUR ---
LOREDO STARTED FRIDAY NOC, WORSENED OVER PAST 2 HOURS. TOOK TRAMADOL (LAST DOSE ABOUT 1515) AND POSSIBLY EXCEDRIN OR TYELENOL - PT UNABLE TO RECALL NAME. REPORTS HX CHRONIC MIGRAINES. DENIES N/V. HAD CHEMO THIS AM (HX STAGE III MULTIPLE MYELOMA)
[2019-12-02] MEDS ORDERED: DEXAMETHASONE (16:02)
[2019-12-02] MEDS ORDERED: LOSA25TA25 PO (16:02)
[2019-12-02] MEDS ORDERED: CITA40TA5 PO (16:02)
[2019-12-02] MEDS ORDERED: FAMO20TA7 PO (16:02)
[2019-12-02] MEDS ORDERED: ASPI-496 PO (16:02)
[2019-12-02] MEDS ORDERED: PROM25TA10 PO (16:02)
[2019-12-02] MEDS ORDERED: PROP20TA PO (16:02)
[2019-12-02] MEDS ORDERED: DIPHENHYDRAMINE 50 MG/ML, 1ML ONE (16:08)
[2019-12-02] MEDS ORDERED: METOCLOPRAMIDE 5 MG/ML, 2ML ONE (16:08)
[2019-12-02] MEDS ORDERED: KETOROLAC 30 MG/1 ML ONE (16:09)
[2019-12-02] MEDS ORDERED: METOCLOPRAMIDE 5 MG/ML, 2ML IVPush ONE (16:30)
[2019-12-02] MEDS ORDERED: DIPHENHYDRAMINE 50 MG/ML, 1ML IVPush ONE (16:30)
[2019-12-02] MEDS ORDERED: SODIUM CHLORIDE 0.9% 1,000ML IVBOLUS ONE (16:30)
[2019-12-02] MEDS ORDERED: KETOROLAC 30 MG/1 ML IVPush ONE (16:30)
[2019-12-02] MEDS ORDERED: SODIUM CHLORIDE FLUSH 10ML SYR IVF ONE (16:30)
--- NOTE | 2019-12-02 16:33 | NUR ---
BENDARYL, TORADOL, REGLAN GIVEN PER EMAR. NS INFUSING; IV SITE PATENT. ROOM LIGHTS DIMMED. SIDE RAILS UP X2, CALL LIGHT W/IN REACH. SISTER IN ROOM
--- NOTE | 2019-12-02 16:45 | NUR ---
BREAK RN: PT RESTING ON [place]. NADN. KRAMER.
--- NOTE | 2019-12-02 17:21 | NUR ---
BREAK RN: PT STATES LOREDO IMPROVED FROM 01/23 TO 11/23. PT PLACED FOR RECHECK.
--- NOTE | 2019-12-02 17:39 | NUR ---
PT'S SISTER AT RN DESK; STATES PT WANTS TO BE DISCHARGED. WILL NOTIFY ERP.
[2019-12-02] MEDS ORDERED: MAGNESIUM SULFATE PMX 2GM/50ML 50 ML ONE (17:56)
[2019-12-02] MEDS ORDERED: MAGNESIUM SULFATE PMX 2GM/50ML 50 ML IV ONE (18:00)
--- NOTE | 2019-12-02 18:00 | NUR ---
MAG SULFATE ORDER CONFIRMED W/ ERP. PER ERP, PT WILLING TO STAY TO TRY THE MED FOR LOREDO RELIEF.
--- NOTE | 2019-12-02 18:04 | NUR ---
MAG SULFATE INFUSION INTITATED; INFUSING AT 25ML/HR VIA PUMP. IV SITE PATENT.
--- NOTE | 2019-12-02 19:13 | NUR ---
ERP TO BS. PT STATES DESIRE TO GO HOME.
[2019-12-02 19:14] VITALS: BP 155/92
--- NOTE | 2019-12-02 19:14 | NUR ---
PT STATES HE DOES NOT WANT TO CONTINUE W/ MAG INFUSION.
== END 2019-12-02 19:29 | disposition home or self-care (01) ==
LOC: ED 17:10
DX: G43.009 Migraine without aura, not intractable, without status migrainosus (principal); H53.149 Visual discomfort, unspecified; I10 Essential (primary) hypertension
CPT/HCPCS: 96365; 96375; 99285; J1200; J1885; J2765; J3475; J7030

== ENCOUNTER 2019-12-05 01:10 | Emergency (ER) | payer OTHER ==
[~2019-12-05] VITALS: Ht 182.9 cm; Wt 73.5 kg
[~2019-12-05 01:10] MED LIST changes: +ACYC-114 PO; +ASPI-496 PO; +CITA40TA5 PO; +DEXAMETHASONE; +FAMO20TA7 PO; +LOSA25TA25 PO; +PROM25TA10 PO; +PROP20TA PO; +TRAM50TA2 PO
[2019-12-05] MEDS ORDERED: PROCHLORPERAZINE 5 MG/ML, 2ML ONE (01:47)
[2019-12-05] MEDS ORDERED: KETOROLAC 30 MG/1 ML ONE (01:48)
[2019-12-05] MEDS ORDERED: DIPHENHYDRAMINE 50 MG/ML, 1ML ONE (01:48)
--- NOTE | 2019-12-05 01:54 | NUR ---
PT MEDICATED PER MAR
--- NOTE | 2019-12-05 01:56 | NUR ---
THIS IS A 64Y M THAT COMES IN FOR A MIGRAINE STARTING FRIDAY. PT WAS SEEN FRIDAY AND PAIN WAS DOWN TO AROUND A 6. PT STS HEADACHE HAS NOW BECOME WORSE AND IS NOT RESPONDING TO HIS HOME MEDICATIONS. PT IS VERY PHOTOPHOBIC BUT SOUNDS ARE NOT BOTHERING HIM AT THIS TIME. PT CONNECTED TO MONITORING, PIV STARTED, FLUIDS INFUSING PT MEDICATED PER AUG 18 RIGHTS VERIFIED. LAB AT BEDSIDE FOR DRAW.
[2019-12-05] MEDS ORDERED: PROCHLORPERAZINE 5 MG/ML, 2ML IVPush ONE (02:00)
[2019-12-05] MEDS ORDERED: DIPHENHYDRAMINE 50 MG/ML, 1ML IVPush ONE (02:00)
[2019-12-05] MEDS ORDERED: KETOROLAC 30 MG/1 ML IVPush ONE (02:00)
[2019-12-05] MEDS ORDERED: SODIUM CHLORIDE 0.9% 1,000ML IVBOLUS ONE (02:00)
[2019-12-05 02:03] LABS: BASOPHILS # (AUTO) 0.02 x10^3/uL (0-0.1); BASOPHILS % (AUTO) 1 % (0-1); EOSINOPHILS # (AUTO) 0.08 x10^3/uL (0-0.4); EOSINOPHILS % (AUTO) 2 % (1-7); LYMPHOCYTES # (AUTO) 0.58 x10^3/uL (1-3.4); LYMPHOCYTES % (AUTO) 15 % (22-44); MD NO; MEAN CORPUSCULAR HEMOGLOBIN 32.1 pg (27.5-34.5); MEAN CORPUSCULAR HGB CONC 34.5 g/dL (33.2-36.2); MEAN CORPUSCULAR VOLUME 93.2 fL (81-97); MEAN PLATELET VOLUME 9.3 fL (7.4-10.4); MONOCYTES # (AUTO) 0.35 x10^3/uL (0.2-0.8); MONOCYTES % (AUTO) 9 % (2-9); NEUTROPHILS # (AUTO) 2.75 x10^3/uL (1.8-6.8); NEUTROPHILS % (AUTO) 73 % (42-75); PLATELET COUNT 116 x10^3/uL (130-400); RED BLOOD COUNT 2.74 x10^6/uL (4.38-5.82); RED CELL DISTRIBUTION WIDTH 21.4 % (9.4-14.8)
[2019-12-05 02:10] LABS: ALANINE AMINOTRANSFERASE 19 U/L (12-78); ALBUMIN 2.6 g/dL (3.4-5.0); ANION GAP 8 mmol/L (5-15); CALCIUM 8.7 mg/dL (8.5-10.1); CHLORIDE 106 mmol/L (98-107); CREATININE 1.11 mg/dL (0.7-1.3)
[2019-12-05 02:13] LABS: ALKALINE PHOSPHATASE 45 U/L (45-117); BILIRUBIN,TOTAL 0.5 mg/dL (0.2-1.0); TOTAL PROTEIN 11.1 g/dL (6.4-8.2)
[2019-12-05] MEDS ORDERED: HYDROmorphone 2 MG/ML, 1ML IVPush PRN (03:00)
[2019-12-05] MEDS ORDERED: HYDROmorphone 1 MG/ML, 1ML INJ ONE (03:16)
--- NOTE | 2019-12-05 03:24 | NUR ---
PT MEDICATED PER AUG. RIGHTS VERIFIED.
[2019-12-05 04:00] VITALS: BP 158/97
== END 2019-12-05 04:25 | disposition home or self-care (01) ==
LOC: ED 02:20
DX: G43.009 Migraine without aura, not intractable, without status migrainosus (principal); R11.2 Nausea with vomiting, unspecified; H53.149 Visual discomfort, unspecified; I10 Essential (primary) hypertension; E03.9 Hypothyroidism, unspecified
CPT/HCPCS: 36415; 80053; 85025; 96361; 96374; 96375; 99284; J0780; J1170; J1200; J1885; J7030

== ENCOUNTER 2019-12-11 21:07 | Emergency (ER) | payer OTHER ==
[~2019-12-11] VITALS: Ht 182.9 cm; Wt 76.0 kg
--- NOTE | 2019-12-11 21:45 | NUR ---
PT REPORTS MIGRAINE LOREDO SINCE 164 TODAY, TOOK NORCO,REGLAN, BENADRYL, AND TORADOL WITHOUT RELIEF. PT REPORTS CHRONIC MIGRAINES.
[2019-12-11] MEDS ORDERED: METOCLOPRAMIDE 5 MG/ML, 2ML ONE (21:59)
[2019-12-11] MEDS ORDERED: METOCLOPRAMIDE 5 MG/ML, 2ML IVPush ONE (22:00)
[2019-12-11] MEDS ORDERED: SODIUM CHLORIDE FLUSH 10ML SYR IVF ONE (22:00)
[2019-12-11] MEDS ORDERED: SODIUM CHLORIDE 0.9% 1,000ML IVBOLUS ONE (22:00)
[2019-12-11] MEDS ORDERED: HYDROmorphone 2 MG/ML, 1ML ONE (22:08)
[2019-12-11] MEDS ORDERED: HYDROmorphone 1 MG/ML, 1ML INJ ONE ×2 (22:11→23:01)
[2019-12-11] MEDS: HYDROmorphone 1 MG/ML, 1ML INJ IVPush PRN ×2 (22:13→23:02)
[2019-12-11 23:07] VITALS: BP 169/103
== END 2019-12-11 23:59 | disposition home or self-care (01) ==
LOC: ED 23:43
DX: G43.001 Migraine without aura, not intractable, with status migrainosus (principal); E03.9 Hypothyroidism, unspecified; Z85.79 Personal history of other malignant neoplasms of lymphoid, hematopoietic and related tissues
CPT/HCPCS: 96374; 96375; 96376; 99284; J1170; J2765; J7030

== ENCOUNTER 2019-12-21 00:19 | Emergency (ER) | payer OTHER ==
[~2019-12-21] VITALS: Ht 182.9 cm; Wt 78.0 kg
--- NOTE | 2019-12-21 00:44 | NUR ---
PT ON ACTIVE CHEMO AND HAD CHEMO YESTERDAY AM. Presents to ed c/o migrane w/ photophobia, n/v and hx of same. States migrane started 1000 yesterday directly after chemo. "i tried the 3 medication cocktail and it didnt work..... I dont know the names of the medications.... Dilaudid worked the last time i was here, i think thats what i should get." Gross neuro fully intact. Bp equal on both sides. Denies cp/sob. Monitoring applied. Bp elevated, but vss otherwise. Call light within reach. Awaiting md assessment.
[2019-12-21] MEDS ORDERED: HYDROmorphone 2 MG/ML, 1ML IVPush ONE (01:00)
[2019-12-21] MEDS ORDERED: ONDANSETRON ODT 4 MG ONE (01:06)
[2019-12-21] MEDS ORDERED: HYDROmorphone 2 MG/ML, 1ML IM ONE (01:30)
[2019-12-21] MEDS ORDERED: ONDANSETRON ODT 4 MG PO ONE (01:30)
[2019-12-21 01:52] VITALS: BP 168/93
--- NOTE | 2019-12-21 01:52 | NUR ---
Pt states feeling "a little bit better." notified.
== END 2019-12-21 02:06 | disposition home or self-care (01) ==
LOC: ED 01:18
DX: G43.009 Migraine without aura, not intractable, without status migrainosus (principal); R11.2 Nausea with vomiting, unspecified; I10 Essential (primary) hypertension; E03.9 Hypothyroidism, unspecified
CPT/HCPCS: 96372; 99283; J1170; Q0162

== ENCOUNTER 2020-03-19 17:13 | Emergency (ER) | payer OTHER ==
[~2020-03-19] VITALS: Ht 182.9 cm; Wt 83.6 kg
[2020-03-19] MEDS ORDERED: DIPHENHYDRAMINE 50 MG/ML, 1ML IVPush ONE (18:00)
[2020-03-19] MEDS ORDERED: SODIUM CHLORIDE FLUSH 10ML SYR IVF ONE (18:00)
[2020-03-19] MEDS ORDERED: KETOROLAC 30 MG/1 ML IVPush ONE (18:00)
[2020-03-19] MEDS ORDERED: METOCLOPRAMIDE 5 MG/ML, 2ML IVPush ONE (18:00)
[2020-03-19] MEDS ORDERED: KETOROLAC 30 MG/1 ML ONE (18:01)
[2020-03-19] MEDS ORDERED: METOCLOPRAMIDE 5 MG/ML, 2ML ONE (18:01)
[2020-03-19] MEDS ORDERED: DIPHENHYDRAMINE 50 MG/ML, 1ML ONE (18:11)
[2020-03-19] MEDS ORDERED: SODIUM CHLORIDE 0.9% 1,000ML IVBOLUS ONE (18:30)
--- NOTE | 2020-03-19 19:26 | NUR ---
ERP IN FOR RECHECK.
[2020-03-19] MEDS ORDERED: HYDROmorphone 1 MG/ML, 1ML INJ IVPush PRN (19:30)
[2020-03-19] MEDS ORDERED: DEXAMETHASONE 4 MG/ML, 1ML IVPush ONE (19:30)
[2020-03-19] MEDS ORDERED: HYDROmorphone 2 MG/ML, 1ML ONE (19:49)
[2020-03-19] MEDS ORDERED: DEXAMETHASONE 4 MG/ML, 1ML ONE (19:49)
--- NOTE | 2020-03-19 20:03 | NUR ---
PT STILL C/O MIGRAINE SYMPTOMS. PT STATES SOMETIMES HIS MIGRAINE SYMPTOMS HAVE LASTED "OVER 60 HOURS, BUT THAT'S RARE". MEDICATED WITH DILAUDID AND DECADRON PER ORDERS. PT STATES HE WILL TAKE CAB HOME.
[2020-03-19 20:20] VITALS: BP 140/87
--- NOTE | 2020-03-19 20:35 | NUR ---
PT STATES HE FEELS A LITTLE BETTER NOW. D/C INSTRUCTIONS & F/U APPT RV'WD WITH PT, HE VERBALIZES UNDERSTANDING. PT STATES HE WILL TAKE CAB HOME. AMBULATED OUT OF ED WITHOUT DIFFICULTY.
== END 2020-03-19 20:34 | disposition home or self-care (01) ==
LOC: ED 18:20
DX: G43.101 Migraine with aura, not intractable, with status migrainosus (principal); I10 Essential (primary) hypertension; E03.9 Hypothyroidism, unspecified
CPT/HCPCS: 96361; 96374; 96375; 99284; J1100; J1170; J1200; J1885; J2765; J7030

== ENCOUNTER 2020-05-08 07:38 | Emergency (ER) | payer OTHER ==
[~2020-05-08] VITALS: Ht 185.4 cm; Wt 85.6 kg
--- NOTE | 2020-05-08 08:17 | NUR ---
YOUTH COUNSELOR: PT TO ROOM FROM LOBBY
--- NOTE | 2020-05-08 08:26 | NUR ---
TASK RN NOTE: PT LAYING BACK IN BED, RESPIRATIONS EVEN AND UNLABORED ON RA. MIGRAINE CHRONIC AND CONSTANT "I'VE BEEN IN BED SINCE FRIDAY" PT USED EXCEDRIN MIGRAINE THIS AM, BENADRYL THROUGH THE NIGHT. ERPA AT BEDSIDE FOR ASSESSMENT.
--- NOTE | 2020-05-08 08:35 | NUR ---
ASSUMED CARE OF PATIENT. REPORT FROM NORRIS. PATIENT IS COMPLAINING OF MIGRAINE PAIN AND HAS BEEN IN BED SINCE FRIDAY. HE STATES HE TOOK HIS REGULAR MEDICATION REGIMIN AT HOME BUT IT DID NOT WORK. PT IS VERY UNSTEADY WHEN WALKING. NO FAMILY AT BEDSIDE. PATIENT RESTING COMFORTABLY WITH LIGHTS DOWN. CALL LIGHT WITHIN REACH.
[2020-05-08] MEDS ORDERED: KETOROLAC 30 MG/1 ML ONE (08:57)
[2020-05-08] MEDS ORDERED: PROCHLORPERAZINE 5 MG/ML, 2ML ONE (08:57)
[2020-05-08] MEDS ORDERED: DIPHENHYDRAMINE 50 MG/ML, 1ML ONE (08:57)
[2020-05-08] MEDS ORDERED: SODIUM CHLORIDE 0.9% 1,000ML IVBOLUS ONE (09:00)
[2020-05-08] MEDS ORDERED: SODIUM CHLORIDE FLUSH 10ML SYR IVF ONE (09:00)
[2020-05-08] MEDS ORDERED: DIPHENHYDRAMINE 50 MG/ML, 1ML IVPush ONE (09:00)
[2020-05-08] MEDS ORDERED: KETOROLAC 30 MG/1 ML IVPush ONE (09:00)
[2020-05-08] MEDS ORDERED: PROCHLORPERAZINE 5 MG/ML, 2ML IVPush ONE (09:00)
--- NOTE | 2020-05-08 09:19 | NUR ---
MEDICATED PATIENT PER EMAR. NO VERBALIZED NEEDS AT THIS TIME. PATIENT IS RESTING COMFORTABLY WITH CALL LIGHT WITHIN REACH. NO FAMILY AT BEDSIDE.
[2020-05-08] MEDS ORDERED: HYDROmorphone 1 MG/ML, 1ML INJ IV ONE (10:00)
--- NOTE | 2020-05-08 10:08 | NUR ---
PATIENT DECLINED NARCOTIC MEDICATION. STATES HE FEELS MUCH BETTER. ADVISED PATIENT THAT HE CANNOT DRIVE WITH THE MEDICATIONS GIVEN. HE STATED HE TOOK A CAB HERE AND WILL TAKE ONE HOME. WILL DISCHARGE HOME
[2020-05-08 10:25] VITALS: BP 143/92
== END 2020-05-08 10:28 | disposition home or self-care (01) ==
LOC: ED 10:25
DX: G43.909 Migraine, unspecified, not intractable, without status migrainosus (principal); I10 Essential (primary) hypertension; E03.9 Hypothyroidism, unspecified
CPT/HCPCS: 96361; 96374; 96375; 99284; J0780; J1200; J1885; J7030

== ENCOUNTER 2020-05-27 02:30 | Emergency (ER) | payer OTHER ==
[~2020-05-27] VITALS: Ht 182.9 cm; Wt 85.0 kg
--- NOTE | 2020-05-27 02:45 | NUR ---
PT IN BED, ERP AT BEDSIDE.
--- NOTE | 2020-05-27 03:40 | NUR ---
PT RESTING, LIGHTS OUT. PROVIDED WITH WARM BLANKETS. DENIES ANY FURTHER NEEDS OR CONCERNS, CALL LIGHT IN REACH.
[2020-05-27 03:51] VITALS: BP 125/79
[2020-05-27] MEDS ORDERED: DIPHENHYDRAMINE 50 MG/ML, 1ML ONE (03:54)
[2020-05-27] MEDS ORDERED: PROCHLORPERAZINE 5 MG/ML, 2ML ONE (03:54)
[2020-05-27] MEDS ORDERED: MAALOX/HYOSCYAMINE/LIDOCAINE 45 ML BTL ONE (03:54)
[2020-05-27] MEDS ORDERED: MAALOX/HYOSCYAMINE/LIDOCAINE 45 ML BTL PO ONE (04:00)
[2020-05-27] MEDS ORDERED: SODIUM CHLORIDE FLUSH 10ML SYR IVF ONE (04:00)
[2020-05-27] MEDS ORDERED: SODIUM CHLORIDE 0.9% 1,000ML IVBOLUS ONE (04:00)
[2020-05-27] MEDS ORDERED: PROCHLORPERAZINE 5 MG/ML, 2ML IVPush ONE (04:00)
[2020-05-27] MEDS ORDERED: DIPHENHYDRAMINE 50 MG/ML, 1ML IVPush ONE (04:00)
--- NOTE | 2020-05-27 04:30 | NUR ---
PT RESTING IN BED, REMINDED OF NEED FOR URINE SAMPLE. DENIES ANY FURTHER NEEDS.
[2020-05-27 04:41] LABS: INTERNATIONAL NORMALIZED RATIO 1.06 (0.93-1.1); PROTHROMBIN TIME 11.2 Seconds (9.6-11.5)
[2020-05-27 04:42] LABS: ALANINE AMINOTRANSFERASE 17 U/L (12-78); ALBUMIN 3.8 g/dL (3.4-5.0); ANION GAP 6 mmol/L (5-15); CALCIUM 8.5 mg/dL (8.5-10.1); CHLORIDE 112 mmol/L (98-107); CREATININE 0.97 mg/dL (0.7-1.3)
[2020-05-27 04:44] LABS: ALKALINE PHOSPHATASE 70 U/L (45-117); BILIRUBIN,TOTAL 0.6 mg/dL (0.2-1.0); TOTAL PROTEIN 6.7 g/dL (6.4-8.2)
[2020-05-27 04:47] LABS: BASOPHILS % (AUTO) 0 % (0-1); EOSINOPHILS % (AUTO) 2 % (1-7); LYMPHOCYTES % (AUTO) 6 % (22-44); MEAN CORPUSCULAR HEMOGLOBIN 31.3 pg (27.5-34.5); MEAN CORPUSCULAR HGB CONC 33.9 g/dL (33.2-36.2); MEAN PLATELET VOLUME 10.2 fL (7.4-10.4); MONOCYTES % (AUTO) 15 % (2-9); NEUTROPHILS % (AUTO) 78 % (42-75); PLATELET COUNT 122 x10^3/uL (130-400); RED BLOOD COUNT 4.05 x10^6/uL (4.38-5.82); RED CELL DISTRIBUTION WIDTH 14.9 % (9.4-14.8)
[2020-05-27 04:49] LABS: MD NO
[2020-05-27] MEDS ORDERED: MORPHINE SULFATE 4 MG/ML, 1ML ONE (05:26)
[2020-05-27] MEDS ORDERED: ONDANSETRON 2MG/ML, 2ML ONE (05:26)
[2020-05-27] MEDS ORDERED: ONDANSETRON 2MG/ML, 2ML IVPush ONE (05:30)
[2020-05-27] MEDS ORDERED: MORPHINE SULFATE 4 MG/ML, 1ML IVPush PRN (05:30)
--- NOTE | 2020-05-27 05:40 | NUR ---
PT MEDICATED PER MAR. URINE COLLECTED AND SENT. DENIES ANY FURTHER NEEDS OR CONCERNS, CALL LIGHT IN REACH.
[2020-05-27 05:58] LABS: MICROSCOPIC AUTO
[2020-05-28] MEDS ORDERED: VALA500T8 PO (09:52)
== END 2020-05-27 06:30 | disposition home or self-care (01) ==
LOC: ED 05:20
DX: G43.001 Migraine without aura, not intractable, with status migrainosus (principal); K92.0 Hematemesis; I10 Essential (primary) hypertension
CPT/HCPCS: 36415; 80053; 81001; 85025; 85610; 85730; 86850; 86900; 87086; 96361; 96374; 96375; 99284; J0780; J1200; J2270; J2405; J7030

== ENCOUNTER 2020-05-27 13:03 | Observation (INO) | payer OTHER ==
[~2020-05-27] VITALS: Ht 182.9 cm; Wt 84.0 kg
[2020-05-27] MEDS ORDERED: MAGNESIUM SULFATE PMX 2GM/50ML 50 ML IV ONE (13:30)
[2020-05-27] MEDS ORDERED: METOCLOPRAMIDE 5 MG/ML, 2ML IVPush ONE (13:30)
[2020-05-27] MEDS ORDERED: SODIUM CHLORIDE 0.9% 1,000ML IVBOLUS ONE (13:30)
[2020-05-27] MEDS ORDERED: KETOROLAC 30 MG/1 ML IVPush ONE (13:30)
[2020-05-27] MEDS ORDERED: DIPHENHYDRAMINE 50 MG/ML, 1ML IVPush ONE (13:30)
[2020-05-27] MEDS ORDERED: DIPHENHYDRAMINE 50 MG/ML, 1ML ONE (14:08)
[2020-05-27] MEDS ORDERED: METOCLOPRAMIDE 5 MG/ML, 2ML ONE (14:08)
[2020-05-27] MEDS ORDERED: MAGNESIUM SULFATE PMX 2GM/50ML 50 ML ONE (14:09)
[2020-05-27] MEDS ORDERED: KETOROLAC 30 MG/1 ML ONE (14:09)
--- NOTE | 2020-05-27 14:40 | NUR ---
piv est, meds per mar, given water, blanket. lights out. call noonan. ctm. as
--- NOTE | 2020-05-27 15:09 | NUR ---
mag infusing per mar, pt resting calmly, vss. as
--- NOTE | 2020-05-27 15:17 | NUR ---
sts pain slightly improved. was drowsing, easily arousable. as
[2020-05-27] MEDS ORDERED: VALPROATE SODIUM 500 MG in DEXTROSE 5% 100 ML IV ONE (16:00)
--- NOTE | 2020-05-27 16:56 | NUR ---
ordered hosp bed/dinner. med hung. pt no needs at this time, resting calmly on stretcher. as
[2020-05-27] MEDS ORDERED: POLYETHYLENE GLYCOL 17 GM PACKET PO PRN (17:00)
[2020-05-27] MEDS ORDERED: METOCLOPRAMIDE 5 MG/ML, 2ML IVPush PRN (17:00)
[2020-05-27] MEDS ORDERED: BISACODYL 10 MG SUPP PR PRN (17:00)
[2020-05-27] MEDS ORDERED: ACETAMINOPHEN 325 MG TABLET PO PRN (17:00)
[2020-05-27] MEDS: VALACYCLOVIR 500MG TABLET PO SCH (17:00)
[2020-05-27] MEDS ORDERED: ONDANSETRON ODT 4 MG PO PRN (17:00)
[2020-05-27] MEDS ORDERED: hydrALAzine 20 MG/ML, 1ML IVPush PRN (17:00)
[2020-05-27] MEDS ORDERED: GABAPENTIN 300 MG CAPSULE PO PRN (17:00)
[2020-05-27] MEDS ORDERED: ONDANSETRON 2MG/ML, 2ML IVPush PRN (17:00)
[2020-05-27] MEDS ORDERED: LABETALOL 5MG/ML, 20ML IVPush PRN (17:00)
[2020-05-27] MEDS ORDERED: HEPARIN 5,000 UNITS/ML, 1ML ONE (17:22)
[2020-05-27] MEDS: HEPARIN 5,000 UNITS/ML, 1ML SQ SCH (17:35)
--- NOTE | 2020-05-27 17:38 | NUR ---
pt moved to hosp bed. as
[2020-05-27] MEDS ORDERED: D5%-0.45NACL+KCL 20MEQ 1,000 ML IV SCH (17:45)
--- NOTE | 2020-05-27 17:49 | NUR ---
report to malka adhikari. as
[2020-05-27 18:58] VITALS: BP_SYST 176; BP_SYST 178; BP_DIAS 108; BP_DIAS 99
[2020-05-27] MEDS: PROMETHAZINE 25 MG/ML, 1ML IM PRN (19:11)
[2020-05-27] MEDS: SUCRALFATE 1 GM TABLET PO SCH (23:21)
[2020-05-27] MEDS: PANTOPRAZOLE 20MG TABLET PO SCH (23:22)
[2020-05-27] MEDS: KETOROLAC 30 MG/1 ML IVPush PRN (23:22)
[2020-05-28] MEDS: HEPARIN 5,000 UNITS/ML, 1ML SQ SCH ×2 (01:30→09:56)
[2020-05-28] MEDS: VALACYCLOVIR 500MG TABLET PO SCH ×2 (01:30→09:56)
[2020-05-28 01:34] VITALS: BP 154/98
[2020-05-28] MEDS: PROMETHAZINE 25 MG/ML, 1ML IM PRN (05:43)
[2020-05-28] MEDS: KETOROLAC 30 MG/1 ML IVPush PRN (05:43)
[2020-05-28 05:46] LABS: MEAN CORPUSCULAR HEMOGLOBIN 31.5 pg (27.5-34.5); MEAN CORPUSCULAR HGB CONC 34.1 g/dL (33.2-36.2); MEAN PLATELET VOLUME 10.5 fL (7.4-10.4); PLATELET COUNT 98 x10^3/uL (130-400); RED BLOOD COUNT 3.94 x10^6/uL (4.38-5.82); RED CELL DISTRIBUTION WIDTH 15.1 % (9.4-14.8)
[2020-05-28 05:50] VITALS: BP 153/93
[2020-05-28] MEDS ORDERED: LEVOTHYROXINE 50 MCG TABLET PO SCH (06:00)
[2020-05-28] MEDS ORDERED: PANTOPRAZOLE 20MG TABLET PO SCH (06:00)
[2020-05-28 06:40] LABS: ANION GAP 3 mmol/L (5-15); CALCIUM 7.9 mg/dL (8.5-10.1); CHLORIDE 112 mmol/L (98-107); CREATININE 0.71 mg/dL (0.7-1.3)
[2020-05-28 06:50] LABS: MD YES
[2020-05-28 06:52] LABS: LYMPH#(MANUAL) 0.48 x10^3/uL (1-3.4); LYMPHS% (MANUAL) 23 % (22-44); MONOS#(MANUAL) 0.48 x10^3/uL (0.3-2.7); MONOS% (MANUAL) 23 % (2-9); SEG#(MANUAL) 1.13 x10^3/uL (1.8-6.8); SEGS% (MANUAL) 54 % (42-75)
[2020-05-28 06:54] LABS: <PLATELET ESTIMATE> DECREASED; ANISOCYTOSIS 1+
[2020-05-28 06:56] LABS: LARGE PLATELETS 1+
[2020-05-28 08:06] VITALS: BP_SYST 146; BP_SYST 149; BP_DIAS 102; BP_DIAS 94
[2020-05-28] MEDS: SUCRALFATE 1 GM TABLET PO SCH (08:39)
[2020-05-28] MEDS ORDERED: CITALOPRAM 20 MG TABLET PO SCH (09:00)
[2020-05-28] MEDS ORDERED: SENNA/DOCUSATE TABLET PO SCH (09:00)
[2020-05-28] MEDS ORDERED: LOSARTAN 100 MG TAB PO SCH (09:00)
[2020-05-28] MEDS ORDERED: VALA500T8 PO (09:52)
[2020-05-28] MEDS: PANTOPRAZOLE 20MG TABLET PO SCH (09:56)
== END 2020-05-28 12:07 | disposition home or self-care (01) ==
LOC: ED 14:02 → EDIP 16:19 → INTOOBSV 16:19 → 4NE 18:47 → 4NW 22:59
PROVIDERS: ADMIT Internal Medicine; ATTEND Internal Medicine
DX: G43.919 Migraine, unspecified, intractable, without status migrainosus (principal); I10 Essential (primary) hypertension; E86.0 Dehydration; K92.1 Melena; C90.00 Multiple myeloma not having achieved remission; E03.9 Hypothyroidism, unspecified; F32.9 Major depressive disorder, single episode, unspecified; B02.9 Zoster without complications; L29.9 Pruritus, unspecified; K21.9 Gastro-esophageal reflux disease without esophagitis; Z79.899 Other long term (current) drug therapy; Z66 Do not resuscitate
CPT/HCPCS: 36415; 80048; 85025; 96361; 96365; 96366; 96367; 96372; 96375; 96376; 99284; G0378; J0360; J1200; J1644; J1885; J2405; J2550; J2765; J3475; J3480; J7030; Q0162

== ENCOUNTER 2020-07-31 20:49 | Emergency (ER) | payer OTHER ==
[~2020-07-31] VITALS: Ht 185.4 cm; Wt 86.4 kg
[~2020-07-31 20:49] MED LIST changes: +VALA500T8 PO
--- NOTE | 2020-07-31 21:12 | NUR ---
pt states having migraines from friday. pt has a history of migrianes, denies n/v. Stated today he took a total of 600mg ibuprofen, 500 mg tylenol, benadryl, 10 mg ketoralac, 2mg dilaudid (1450). pt resting in [facility], erp at bedside
[2020-07-31] MEDS ORDERED: DIPHENHYDRAMINE 50 MG/ML, 1ML ONE (21:24)
[2020-07-31] MEDS ORDERED: METOCLOPRAMIDE 5 MG/ML, 2ML ONE (21:24)
[2020-07-31] MEDS ORDERED: KETOROLAC 30 MG/1 ML ONE (21:24)
[2020-07-31] MEDS ORDERED: KETOROLAC 30 MG/1 ML IVPush ONE (21:30)
[2020-07-31] MEDS ORDERED: DIPHENHYDRAMINE 50 MG/ML, 1ML IVPush ONE (21:30)
[2020-07-31] MEDS ORDERED: SODIUM CHLORIDE FLUSH 10ML SYR IVF ONE (21:30)
[2020-07-31] MEDS ORDERED: SODIUM CHLORIDE 0.9% 1,000ML IVBOLUS ONE (21:30)
[2020-07-31] MEDS ORDERED: METOCLOPRAMIDE 5 MG/ML, 2ML IVPush ONE (21:30)
--- NOTE | 2020-07-31 21:45 | NUR ---
pt medicated per emar, on continuous pulse ox, no other needs at this time
--- NOTE | 2020-07-31 22:18 | NUR ---
ivf complete, pt resting in [facility], states no relief with medications and fluids
[2020-07-31] MEDS ORDERED: HYDROmorphone 1 MG/ML, 1ML INJ IV ONE (22:30)
[2020-07-31] MEDS ORDERED: HYDROmorphone 1 MG/ML, 1ML INJ ONE (22:34)
[2020-07-31 22:55] VITALS: BP 157/93
--- NOTE | 2020-07-31 22:57 | NUR ---
pt states feeling a lot better after medication admin, pt to call cab to get home, pt given d/c instructions
== END 2020-07-31 23:21 | disposition home or self-care (01) ==
LOC: ED 21:30
DX: G43.009 Migraine without aura, not intractable, without status migrainosus (principal); H53.149 Visual discomfort, unspecified; G89.29 Other chronic pain; I10 Essential (primary) hypertension
CPT/HCPCS: 96361; 96374; 96375; 99284; J1170; J1200; J1885; J2765; J7030

== ENCOUNTER 2020-09-03 19:13 | Emergency (ER) | payer OTHER ==
[~2020-09-03] VITALS: Ht 182.9 cm; Wt 86.4 kg
[2020-09-03] MEDS ORDERED: DIPHENHYDRAMINE 50 MG/ML, 1ML IVPush ONE (20:00)
[2020-09-03] MEDS ORDERED: SODIUM CHLORIDE 0.9% 1,000ML IVBOLUS ONE (20:00)
[2020-09-03] MEDS ORDERED: PROCHLORPERAZINE 5 MG/ML, 2ML IVPush ONE (20:00)
[2020-09-03] MEDS ORDERED: KETOROLAC 30 MG/1 ML IVPush ONE (20:00)
[2020-09-03] MEDS ORDERED: SODIUM CHLORIDE FLUSH 10ML SYR IVF ONE (20:00)
--- NOTE | 2020-09-03 20:58 | NUR ---
Report received from WILLY Kent. This RN to assume care. Patient presents to ER c/o migraine x2 days with worsening symptoms this morning. Hx of same. Took rx meds at home with no relief. +photophobia, +nausea Patient is in obvious discomfort. Respirations even and unlabored.
--- NOTE | 2020-09-03 20:59 | NUR ---
This RN was assigned to this pt but has been in a critical room with 1:1 care since 1735. cocoa milling machine operator notified of need for coverage by RN over my other rooms at 1845. Noted pt has not been medicated or seen by RN since MD hoyos. RN on-coming for end of shift notified of delay in care as well as hemodialysis charge nurse notification and MD. Care transferred now.
[2020-09-03] MEDS ORDERED: SUMATRIPTAN 6MG/0.5ML SQ ONE ×2 (21:00→21:01)
[2020-09-03] MEDS ORDERED: PROCHLORPERAZINE 5 MG/ML, 2ML ONE (21:01)
[2020-09-03] MEDS ORDERED: KETOROLAC 30 MG/1 ML ONE (21:01)
[2020-09-03] MEDS ORDERED: DIPHENHYDRAMINE 50 MG/ML, 1ML ONE (21:01)
[2020-09-03 22:27] VITALS: BP 164/93
--- NOTE | 2020-09-03 22:28 | NUR ---
PATIENT CLEARED FOR DISCHARGE. NO NOTED ACUTE DISTRESS. PATIENT AMBULATORY TO DISCHARGE DESK WITHOUT COMPLICATIONS, WITH BELONGINGS. PATIENT DENIES ANY ADDITIONAL QUESTIONS AT TIME OF DISCHARGE.
== END 2020-09-03 22:30 | disposition home or self-care (01) ==
LOC: ED 22:00
DX: G43.009 Migraine without aura, not intractable, without status migrainosus (principal); H53.149 Visual discomfort, unspecified; I10 Essential (primary) hypertension; E03.9 Hypothyroidism, unspecified
CPT/HCPCS: 96372; 96374; 96375; 99284; J0780; J1200; J1885; J3030; J7030

== ENCOUNTER 2020-09-04 12:36 | Emergency (ER) | payer OTHER ==
[~2020-09-04] VITALS: Ht 182.9 cm; Wt 85.5 kg
[2020-09-04] MEDS ORDERED: SODIUM CHLORIDE FLUSH 10ML SYR IVF ONE (13:30)
[2020-09-04] MEDS ORDERED: SODIUM CHLORIDE 0.9% 1,000ML IVBOLUS ONE (13:30)
[2020-09-04] MEDS ORDERED: DEXAMETHASONE 4 MG/ML, 1ML IVPush ONE (13:30)
[2020-09-04] MEDS ORDERED: KETOROLAC 30 MG/1 ML IVPush ONE (13:30)
[2020-09-04] MEDS ORDERED: METOCLOPRAMIDE 5 MG/ML, 2ML IVPush ONE (13:30)
[2020-09-04] MEDS ORDERED: DIPHENHYDRAMINE 50 MG/ML, 1ML IVPush ONE (13:30)
[2020-09-04] MEDS ORDERED: METOCLOPRAMIDE 5 MG/ML, 2ML ONE (13:35)
[2020-09-04] MEDS ORDERED: DIPHENHYDRAMINE 50 MG/ML, 1ML ONE (13:35)
[2020-09-04] MEDS ORDERED: DEXAMETHASONE 4 MG/ML, 5ML ONE (13:35)
[2020-09-04] MEDS ORDERED: KETOROLAC 30 MG/1 ML ONE (13:35)
[2020-09-04 14:33] VITALS: BP 152/95
[2020-09-04] MEDS ORDERED: HYDROmorphone 1 MG/ML, 1ML INJ ONE (14:58)
[2020-09-04] MEDS ORDERED: SUMATRIPTAN 6MG/0.5ML SQ ONE ×2 (14:58→15:00)
[2020-09-04] MEDS ORDERED: HYDROmorphone 1 MG/ML, 1ML INJ IV ONE (15:00)
--- NOTE | 2020-09-04 15:31 | NUR ---
PT REPORTS LOREDO STILL PRESENT. MD NOTIFIED. SEE MAR FOR INTERVENTIONS
== END 2020-09-04 16:25 | disposition home or self-care (01) ==
LOC: ED 13:13
DX: G43.909 Migraine, unspecified, not intractable, without status migrainosus (principal); I10 Essential (primary) hypertension; E03.9 Hypothyroidism, unspecified
CPT/HCPCS: 96361; 96372; 96374; 96375; 99284; J1100; J1170; J1200; J1885; J2765; J3030; J7030

== ENCOUNTER 2020-10-08 00:26 | Emergency (ER) | payer OTHER ==
[~2020-10-08] VITALS: Ht 198.1 cm; Wt 83.4 kg
[~2020-10-08 00:26] MED LIST changes: -ACYC-114 PO; +ACYC-40 PO
[2020-10-08] MEDS ORDERED: KETOROLAC 30 MG/1 ML ONE (01:15)
[2020-10-08] MEDS ORDERED: METOCLOPRAMIDE 5 MG/ML, 2ML ONE (01:15)
[2020-10-08] MEDS ORDERED: DIPHENHYDRAMINE 50 MG/ML, 1ML ONE (01:15)
[2020-10-08] MEDS ORDERED: METOCLOPRAMIDE 5 MG/ML, 2ML IVPush ONE (01:30)
[2020-10-08] MEDS ORDERED: KETOROLAC 30 MG/1 ML IM ONE (01:30)
[2020-10-08] MEDS ORDERED: DIPHENHYDRAMINE 50 MG/ML, 1ML IVPush ONE (01:30)
[2020-10-08 02:23] VITALS: BP 135/90
== END 2020-10-08 02:25 | disposition home or self-care (01) ==
LOC: ED 00:54
DX: G43.009 Migraine without aura, not intractable, without status migrainosus (principal); H53.149 Visual discomfort, unspecified; I10 Essential (primary) hypertension; E03.9 Hypothyroidism, unspecified
CPT/HCPCS: 96372; 96374; 96375; 99284; J1200; J1885; J2765

== ENCOUNTER 2020-12-19 18:31 | Emergency (ER) | payer OTHER ==
[~2020-12-19] VITALS: Ht 185.4 cm; Wt 83.3 kg
[2020-12-19 19:09] LABS: BASOPHILS % (AUTO) 1 % (0-1); EOSINOPHILS % (AUTO) 2 % (1-7); LYMPHOCYTES % (AUTO) 8 % (22-44); MEAN CORPUSCULAR HEMOGLOBIN 32.2 pg (27.5-34.5); MEAN CORPUSCULAR HGB CONC 34.2 g/dL (33.2-36.2); MEAN PLATELET VOLUME 9.1 fL (7.4-10.4); MONOCYTES % (AUTO) 14 % (2-9); NEUTROPHILS % (AUTO) 75 % (42-75); PLATELET COUNT 207 x10^3/uL (130-400); RED BLOOD COUNT 4.41 x10^6/uL (4.38-5.82); RED CELL DISTRIBUTION WIDTH 13.9 % (9.4-14.8)
[2020-12-19 19:18] LABS: ALANINE AMINOTRANSFERASE 35 U/L (12-78); ALBUMIN 4.1 g/dL (3.4-5.0); ANION GAP 6 mmol/L (5-15); CALCIUM 8.9 mg/dL (8.5-10.1); CHLORIDE 108 mmol/L (98-107); CREATININE 1.34 mg/dL (0.7-1.3)
[2020-12-19 19:20] LABS: ALKALINE PHOSPHATASE 82 U/L (45-117); TOTAL PROTEIN 7.5 g/dL (6.4-8.2)
[2020-12-19 19:29] LABS: MICROSCOPIC AUTO
[2020-12-19] MEDS ORDERED: KETOROLAC 30 MG/1 ML ONE (21:55)
[2020-12-19] MEDS ORDERED: ONDANSETRON 2MG/ML, 2ML ONE (21:55)
[2020-12-19] MEDS ORDERED: KETOROLAC 30 MG/1 ML IVPush ONE (22:00)
[2020-12-19] MEDS ORDERED: ONDANSETRON 2MG/ML, 2ML IVPush ONE (22:00)
--- NOTE | 2020-12-19 22:24 | NUR ---
IV STARTED AND PT MEDICATED PER ORDERS. PT UNDERSTANDS POC. WATER PROVIDED PER ERP. ERP TO REASSESS.
--- NOTE | 2020-12-19 22:53 | NUR ---
REPORT RECEIVED FROM ARMINDA AGUILERA
[2020-12-19 23:34] VITALS: BP 124/72
--- NOTE | 2020-12-20 00:03 | NUR ---
Patient given discharge instructions and they have confirmed that they understand the instructions. Patient ambulatory with steady gait. NAD, all questions answered appropriately, denies additional needs at this time. No personal belongings left in room after discharge.
== END 2020-12-20 00:04 | disposition home or self-care (01) ==
LOC: ED 21:06
DX: N13.2 Hydronephrosis with renal and ureteral calculous obstruction (principal); I10 Essential (primary) hypertension
CPT/HCPCS: 36415; 80053; 81001; 85025; 96374; 96375; 99284; J1885; J2405